=== PATIENT | female | born 1980 | race Caucasian/White ===

== ENCOUNTER 2016-03-12 18:04 | Emergency (ER) | payer OTHER ==
[2016-03-12 18:13] VITALS: BP 120/76; PULSE 74; TEMP 98; BMI 33.4
[2016-03-12] MEDS ORDERED: ONDANSETRON 4 MG/2 ML VIAL IVPB ONE (20:02)
[2016-03-12] MEDS ORDERED: HYDROmorphone HCL CARPU-JECT 1 MG/1 ML DISP.SYRIN IVPB ONE ×2 (20:02→23:04)
--- NOTE | 2016-03-12 20:30 | PDOC ---
History of Present Illness - General History Source: Patient Exam Limitations: No Limitations - History of Present Illness Initial Comments: 03/12/16 20:45 The patient is a 35 year old female with a significant past medical history of endometriosis and fibroids, who presents to the emergency department for abdominal pain. Patient reports that she typically does not get her periods. She has recently been restarted on a hormonal agent called Lupron. She started developing abdominal pain several hours ago in the right side that is consistent with all her previous endometriosis pain. Patient denies any fevers, chills, nausea, vomiting, diarrhea, dysuria. <Justin Suarez - Last Filed: 03/12/16 20:51> - General History Source: Patient Exam Limitations: No Limitations <Portillo Murray - Last Filed: 03/13/16 01:25> - General Chief Complaint: Pain, Acute Stated Complaint: ABD PAIN/VAGINAL BLEEDING Time Seen by Provider: 03/12/16 19:28 Past History <Justin Suarez - Last Filed: 03/12/16 20:51> - Past Medical History Asthma: Yes Disorders: Yes (endometriosis) Suicide Attempt (Hx): No Other medical history: ENDOMETRIOSIS, - Surgical History Abdominal Surgery: Yes (laparoscopy X5) - Reproductive History (#): 6 Para: 2 Polycystic Ovaries: Yes Therapeutic (s) & number: Yes (1) Spontaneous : 1 - Immunization History Td Vaccination: No Immunization Up to Date: Yes - Psycho/Social/Smoking Cessation Hx Anxiety: No Suicidal Ideation: No Smoking Status: No Smoking History: Never smoked Have you smoked in the past 12 months: No Number of Cigarettes Smoked Daily: 0 Information on smoking cessation initiated: No Hx Alcohol Use: No Drug/Substance Use Hx: No Substance Use Type: None <Portillo Murray - Last Filed: 03/13/16 01:25> - Past Medical History Allergies/Adverse Reactions: Allergies Allergy/AdvReac Type Severity Reaction Status Date / Time morphine AdvReac Mild Itching Verified 03/12/16 18:09 beans AdvReac Severe Uncoded 03/12/16 18:09 Home Medications: Ambulatory Orders Leuprolide Acetate [Lupron Depot] 0 mg IM MONTHLY 01/08/16 Review of Systems - Review of Systems Able to Perform ROS?: Yes Comments:: 03/12/16 20:45 GENERAL/CONSTITUTIONAL: No fever or chills. No weakness. HEAD, EYES, EARS, NOSE AND THROAT: No change in vision. No ear pain or discharge. No sore throat. CARDIOVASCULAR: No chest pain or shortness of breath. RESPIRATORY: No cough, wheezing, or hemoptysis. GASTROINTESTINAL: No nausea, vomiting, diarrhea or constipation. GENITOURINARY: No dysuria, frequency, or change in urination. ABDOMINAL: right sided abdominal pain. MUSCULOSKELETAL: No joint or muscle swelling or pain. No neck or back pain. SKIN: No rash NEUROLOGIC: No headache, vertigo, loss of consciousness, or change in strength/ sensation. ENDOCRINE: No increased thirst. No abnormal weight change. HEMATOLOGIC/LYMPHATIC: No anemia, easy bleeding, or history of blood clots. ALLERGIC/IMMUNOLOGIC: No hives or skin allergy. <Justin Suarez - Last Filed: 03/12/16 20:51> *Physical Exam - Vital Signs Last Vital Signs Temp Pulse Resp BP Pulse Ox 98.0 F 74 18 120/76 100 03/12/16 18:10 03/12/16 18:10 03/12/16 18:10 03/12/16 18:10 03/12/16 18:10 - Physical Exam Comments: 03/12/16 20:51 GENERAL: Awake, alert, and fully oriented. Uncomfortable appearing. HEAD: No signs of trauma EYES: PERRLA, EOMI, sclera anicteric, conjunctiva clear ENT: Auricles normal inspection, hearing grossly normal, nares patent, oropharynx clear without exudates. Moist mucosa NECK: Normal ROM, supple, no lymphadenopathy, JVD, or masses LUNGS: Breath sounds equal, clear to auscultation bilaterally. No wheezes, and no crackles HEART: Regular rate and rhythm, normal S1 and S2, no murmurs, rubs or gallops ABDOMEN: Right mid to lower abdominal tenderness to palpation No guarding, no rebound. No masses EXTREMITIES: Normal range of motion, no edema. No clubbing or cyanosis. No cords, erythema, or tenderness NEUROLOGICAL: Cranial nerves II through XII grossly intact. Normal speech, normal gait SKIN: Warm, Dry, normal turgor, no rashes or lesions noted. <Justin Suarez - Last Filed: 03/12/16 20:51> - Vital Signs Last Vital Signs Temp Pulse Resp BP Pulse Ox 98.0 F 74 18 120/76 100 03/12/16 18:10 03/12/16 18:10 03/12/16 18:10 03/12/16 18:10 03/12/16 18:10 <Portillo Murray - Last Filed: 03/13/16 01:25> ED Treatment Course - LABORATORY CBC & Chemistry Diagram: 03/12/16 21:12 03/12/16 21:12 <Portillo Murray - Last Filed: 03/13/16 01:25> Medical Decision Making - Medical Decision Making 03/12/16 20:33 A portion of this note was documented by scribe services under my direction. I have reviewed the details of the note, within reason, and agree with the documentation with the following case summary and management plan written by me. Patient treated in the ED. Nursing notes are reviewed and incorporated into the medical decision-making. Vital signs reviewed. Peripheral IV access obtained by the nurse, laboratory studies are drawn and sent, reviewed and interpreted by myself. Vital Signs Temp Pulse Resp BP Pulse Ox 98.0 F 74 18 120/76 100 03/12/16 18:10 03/12/16 18:10 03/12/16 18:10 03/12/16 18:10 03/12/16 18:10 35 year old female with past medical history of endometriosis and fibroids presents to the emergency department for abdominal pain. The patient has history of recurrent endometriosis pain. She reports that she typically does not get her periods. She has recently been restarted on hormonal agent called Lupron. She started developing abdominal pain in the right sided that is consistent with all her previous endometriosis pain several hours ago. When she started developing her. Now, her pain has started. Patient denies any fevers, chills, nausea, vomiting, diarrhea, dysuria. She again insists that this is exactly like her prior and which was his pain. We'll give pain medications and check labs and a urine test. At this time, we'll hold off on any imaging. However, the pain is uncontrolled, we'll need to consider either ultrasound or CAT scan. This is likely endometrosis. 03/13/16 01:22 CBC, BMP 03/12/16 21:12 03/12/16 21:12 CMP Sodium 138 mmol/L (136-145) 03/12/16 21:12 Potassium 3.9 mmol/L (3.5-5.1) 03/12/16 21:12 Chloride 103 mmol/L (98-107) 03/12/16 21:12 Carbon Dioxide 27 mmol/L (21-32) 03/12/16 21:12 Anion Gap 8 (8-16) 03/12/16 21:12 BUN 10 mg/dL (7-18) 03/12/16 21:12 Creatinine 0.9 mg/dL (0.55-1.02) D 03/12/16 21:12 Creat Clearance w eGFR > 60 (>60) 03/12/16 21:12 Random Glucose 83 mg/dL (74-106) 03/12/16 21:12 Calcium 9.1 mg/dL (8.5-10.1) 03/12/16 21:12 Total Bilirubin 0.8 mg/dL (0.2-1.0) 03/12/16 21:12 AST 20 U/L (15-37) D 03/12/16 21:12 ALT 40 U/L (12-78) D 03/12/16 21:12 Alkaline Phosphatase 108 U/L (45-117) 03/12/16 21:12 Total Protein 8.1 g/dl (6.4-8.2) 03/12/16 21:12 Albumin 4.3 g/dl (3.4-5.0) 03/12/16 21:12 Lipase 106 U/L (73-393) 03/12/16 21:12 Serum , Qual Negative 03/12/16 21:12 Urine Test Results Urine Color Yellow 03/12/16 21:12 Urine Appearance Slcloudy 03/12/16 21:12 Urine pH 6.0 (5.0-8.0) 03/12/16 21:12 Ur Specific [place] 1.025 (1.001-1.035) 03/12/16 21:12 Urine Protein Negative (NEGATIVE) 03/12/16 21:12 Urine Glucose (UA) Negative (NEGATIVE) 03/12/16 21:12 Urine Ketones Negative (NEGATIVE) 03/12/16 21:12 Urine Blood 3+ (NEGATIVE) H 03/12/16 21:12 Urine Nitrite Negative (NEGATIVE) 03/12/16 21:12 Urine Bilirubin Negative (NEGATIVE) 03/12/16 21:12 Ur Leukocyte Esterase Negative (NEGATIVE) 03/12/16 21:12 Urine RBC 812 /hpf (0-3) 03/12/16 21:12 Urine WBC 3 /hpf (3-5) 03/12/16 21:12 Ur Epithelial Cells Rare /hpf (FEW) 03/12/16 21:12 Urine Mucus Many 03/12/16 21:12 Transvaginal ultrasound reviewed. No acute findings. No torsion. The patient reports feeling significantly better and with resolution of pain. Again, this is very likely endometriosis. Supportive care and follow up with her chief unit forester UA c/w her period. I discussed the physical exam findings, ancillary test results and final diagnoses with the patient. I answered all of the patient's questions. The patient was satisfied with the care received and felt comfortable with the discharge plan and treatment plan. The patient will call their primary care physician within 24 hours to arrange follow-up and will return to the Emergency Department with any new, persistant or worsening symptoms. <Portillo Murray - Last Filed: 03/13/16 01:25> *DC/Admit/Observation/Transfer - Attestations Scribe Attestion: 03/12/16 20:45 Documentation prepared by Justin Suarez, acting as medical center director for Portillo Murray MD, MD. <Justin Suarez - Last Filed: 03/12/16 20:51> - Discharge Dispostion Admit: No <Portillo Murray - Last Filed: 03/13/16 01:25> Diagnosis at time of Disposition: Endometriosis - Discharge Dispostion Disposition: HOME Condition at time of disposition: Improved - Referrals Referrals: Meliza Morgan MD [Primary Care Provider] - - Patient Instructions Printed Discharge Instructions: DI for Endometriosis Additional Instructions: Your ultrasound is unremarkable. Please follow up with your chief unit forester doctor.
[2016-03-12] MEDS ORDERED: HYDROmorphone HCL CARPU-JECT 1 MG/1 ML DISP.SYRIN ONE ×2 (21:16→22:52)
[2016-03-12] MEDS ORDERED: ONDANSETRON 4 MG/2 ML VIAL ONE (21:17)
[2016-03-12 21:19] LABS: BASOPHIL 0.7 % (0-2.0); EOSINOPHIL 4.1 % (0-4.5); MCH 27.6 pg (25.7-33.7); MCHC 34.4 g/dl (32.0-36.0); MEAN CELL VOLUME 80.1 fl (80-96); MEAN PLT VOLUME 7.5 fl (7.5-11.1); NEUTROPHILS 34.2 % (42.8-82.8); PLATELET COUNT 350 K/MM3 (134-434); RDW 13.9 % (11.6-15.6); WHITE BLOOD COUNT 4.7 K/mm3 (4.0-10.0)
[2016-03-12 21:47] LABS: ALBUMIN 4.3 g/dl (3.4-5.0); ANION GAP 8 (8-16); BILIRUBIN,TOTAL 0.8 mg/dL (0.2-1.0); CALCIUM 9.1 mg/dL (8.5-10.1); CO2 27 mmol/L (21-32); CREATININE 0.9 mg/dL (0.55-1.02); GLUCOSE,RANDOM 83 mg/dL (74-106); SGOT/AST 20 U/L (15-37); SGPT/ALT 40 U/L (12-78); TOT PROT 8.1 g/dl (6.4-8.2)
[2016-03-12 21:48] LABS: ALK PHOS 108 U/L (45-117)
[2016-03-12 22:32] LABS: URINE APPEARANCE SLCLOUDY; URINE BILIRUBIN NEGATIVE (NEGATIVE); URINE COLOR YELLOW; URINE GLUCOSE (UA) NEGATIVE (NEGATIVE); URINE KETONE NEGATIVE (NEGATIVE); URINE LEUK ESTERASE NEGATIVE (NEGATIVE); URINE NITRITE NEGATIVE (NEGATIVE); URINE PROTEIN NEGATIVE (NEGATIVE); URINE UROBILINOGEN 2.0 E.U/dl E.U./dl (0.2-1.0)
[2016-03-12 22:55] LABS: URINE BLOOD 3+ (NEGATIVE)
[2016-03-12 22:57] LABS: URINE MUCUS MANY; URINE RBC 812 /hpf (0-3); URINE WBC 3 /hpf (3-5)
[2016-03-13] MEDS ORDERED: OXYCODONE/APAP 5/325MG COMBO TABLET PO ONE (02:21)
== END 2016-03-13 02:35 | disposition home or self-care (01) ==
LOC: JER 18:04
PROC: 3E033NZ Introduction of Analgesics, Hypnotics, Sedatives into Peripheral Vein, Percutaneous Approach (ICD-10-PCS; principal; 2016-03-12)
PROC: 3E033GC Introduction of Other Therapeutic Substance into Peripheral Vein, Percutaneous Approach (ICD-10-PCS; 2016-03-12)
DX: N80.8 Other endometriosis (principal)
CPT/HCPCS: 36415; 76830-TC; 80053; 81003; 81015; 83690; 84703; 85025; 87086; 96374; 96375; 96376; 99281-25

== ENCOUNTER 2016-03-28 13:43 | Emergency (ER) | payer OTHER ==
[2016-03-28 13:55] VITALS: BMI 32.8
--- NOTE | 2016-03-28 15:37 | PDOC ---
History of Present Illness - General History Source: Patient Exam Limitations: No Limitations - History of Present Illness Initial Comments: 03/28/16 15:43 The patient is a 35 year old female, with a significant past medical history of endometriosis and fibroids, who presents to the emergency department with abdominal pain. The patient ranks her pain a 8/10 in pain intensity. The patient reports taking Tylenol and Motrin for the past 2 days with no alleviation of her pain. She reports last taking Motrin (1000mg) last at 12: 00pm today. She denies fever, chills, headache and dizziness. Allergies: Morphine. Past surgical history: denies. Social history: Nonsmoker. Denies EtOH use and drug use. PCP: <Elliot Parekh - Last Filed: 03/28/16 15:41> <Deena Vela - Last Filed: 03/31/16 14:31> - General Chief Complaint: Pain Stated Complaint: ABDOMINAL PAIN Time Seen by Provider: 03/28/16 15:03 Past History <Elliot Parekh - Last Filed: 03/28/16 15:41> - Past Medical History Asthma: Yes Disorders: Yes (endometriosis) Suicide Attempt (Hx): No - Surgical History Abdominal Surgery: Yes (laparoscopy X5) - Reproductive History (#): 6 Para: 2 Polycystic Ovaries: Yes Therapeutic (s) & number: Yes (1) Spontaneous : 1 - Immunization History Td Vaccination: No Immunization Up to Date: Yes - Psycho/Social/Smoking Cessation Hx Anxiety: No Suicidal Ideation: No Smoking Status: No Smoking History: Never smoked Have you smoked in the past 12 months: No Number of Cigarettes Smoked Daily: 0 Hx Alcohol Use: No Drug/Substance Use Hx: No Substance Use Type: None <Deena Vela - Last Filed: 03/31/16 14:31> - Past Medical History Allergies/Adverse Reactions: Allergies Allergy/AdvReac Type Severity Reaction Status Date / Time morphine AdvReac Mild Itching Verified 03/28/16 13:55 beans AdvReac Severe Uncoded 03/28/16 13:55 Home Medications: Ambulatory Orders Leuprolide Acetate [Lupron Depot] 0 mg IM MONTHLY 01/08/16 Oxycodone HCl/Acetaminophen [Percocet 5-325 mg Tablet] 1 tab PO Q6H PRN #12 tablet MDD 4 tabs 03/28/16 Review of Systems - Review of Systems Able to Perform ROS?: Yes Comments:: 03/28/16 15:43 GENERAL/CONSTITUTIONAL: No fever or chills. No weakness. HEAD, EYES, EARS, NOSE AND THROAT: No change in vision. No ear pain or discharge. No sore throat. CARDIOVASCULAR: No chest pain or shortness of breath. RESPIRATORY: No cough, wheezing, or hemoptysis. GASTROINTESTINAL: Yes abd pain. No nausea, vomiting, diarrhea or constipation. GENITOURINARY: No dysuria, frequency, or change in urination. MUSCULOSKELETAL: No joint or muscle swelling or pain. No neck or back pain. SKIN: No rash NEUROLOGIC: No headache, vertigo, loss of consciousness, or change in strength/ sensation. ENDOCRINE: No increased thirst. No abnormal weight change. HEMATOLOGIC/LYMPHATIC: No anemia, easy bleeding, or history of blood clots. ALLERGIC/IMMUNOLOGIC: No hives or skin allergy. <Elliot Parekh - Last Filed: 03/28/16 15:41> *Physical Exam - Vital Signs Last Vital Signs Temp Pulse Resp BP Pulse Ox 98.0 F 71 20 128/80 98 03/28/16 13:53 03/28/16 13:53 03/28/16 13:53 03/28/16 13:53 03/28/16 13:53 - Physical Exam Comments: 03/28/16 15:43 GENERAL: Awake, alert, and fully oriented. tearful and appears uncomfortable. . HEAD: No signs of trauma EYES: PERRLA, EOMI, sclera anicteric, conjunctiva clear ENT: Auricles normal inspection, hearing grossly normal, nares patent, oropharynx clear without exudates. Moist mucosa NECK: Normal ROM, supple, no lymphadenopathy, JVD, or masses LUNGS: Breath sounds equal, clear to auscultation bilaterally. No wheezes, and no crackles HEART: Regular rate and rhythm, normal S1 and S2, no murmurs, rubs or gallops ABDOMEN: Lower abdominal tenderness. Soft, normoactive bowel sounds. No guarding, no rebound. No masses EXTREMITIES: Normal range of motion, no edema. No clubbing or cyanosis. No cords, erythema, or tenderness NEUROLOGICAL: Cranial nerves II through XII grossly intact. Normal speech, normal gait SKIN: Warm, Dry, normal turgor, no rashes or lesions noted. <Elliot Parekh - Last Filed: 03/28/16 15:41> - Vital Signs Last Vital Signs Temp Pulse Resp BP Pulse Ox 98.0 F 71 20 128/80 98 03/28/16 13:53 03/28/16 13:53 03/28/16 13:53 03/28/16 13:53 03/28/16 13:53 <Deena Vela - Last Filed: 03/31/16 14:31> ED Treatment Course - ADDITIONAL ORDERS Additional order review: Laboratory Results 03/28/16 15:00 Urine Color Ltyellow Urine Appearance Clear Urine pH 6.0 Ur Specific [place] 1.017 Urine Protein Negative Urine Glucose (UA) Negative Urine Ketones Negative Urine Blood Negative Urine Nitrite Negative Urine Bilirubin Negative Urine Urobilinogen Negative Ur Leukocyte Esterase Negative <Elliot Parekh - Last Filed: 03/28/16 15:41> - LABORATORY CBC & Chemistry Diagram: 03/28/16 16:00 03/28/16 16:00 <Deena Vela - Last Filed: 03/31/16 14:31> Medical Decision Making - Medical Decision Making Pt reports significant improvement with pain medication. Stable for DC with outpatient f/u. <Deena Vela - Last Filed: 03/31/16 14:31> *DC/Admit/Observation/Transfer - Attestations Scribe Attestion: 03/28/16 15:43 Documentation prepared by Elliot Parekh, acting as medical laboratory technologist for Deena Vela MD. <Elliot Parekh - Last Filed: 03/28/16 15:41> - Discharge Dispostion Admit: No <Deena Vela - Last Filed: 03/31/16 14:31> Diagnosis at time of Disposition: Endometriosis - Discharge Dispostion Disposition: HOME Condition at time of disposition: Improved - Prescriptions Prescriptions: Oxycodone HCl/Acetaminophen [Percocet 5-325 mg Tablet] 1 tab PO Q6H PRN #12 tablet MDD 4 tabs PRN Reason: Severe Pain - Referrals Referrals: Giselle Lynch [Primary Care Provider] - - Patient Instructions Printed Discharge Instructions: DI for Endometriosis
[2016-03-28] MEDS ORDERED: ONDANSETRON 4 MG/2 ML VIAL IVPUSH ONE (15:38)
[2016-03-28] MEDS ORDERED: SODIUM CHLORIDE 1,000 ML IV STA (15:38)
[2016-03-28] MEDS ORDERED: HYDROmorphone HCL CARPU-JECT 1 MG/1 ML DISP.SYRIN IVPUSH ONE ×2 (15:38→16:49)
[2016-03-28 15:39] LABS: URINE APPEARANCE CLEAR; URINE BILIRUBIN NEGATIVE (NEGATIVE); URINE BLOOD NEGATIVE (NEGATIVE); URINE COLOR LTYELLOW; URINE GLUCOSE (UA) NEGATIVE (NEGATIVE); URINE KETONE NEGATIVE (NEGATIVE); URINE LEUK ESTERASE NEGATIVE (NEGATIVE); URINE NITRITE NEGATIVE (NEGATIVE); URINE PROTEIN NEGATIVE (NEGATIVE); URINE UROBILINOGEN NEGATIVE E.U./dl (0.2-1.0)
[2016-03-28 16:10] LABS: MCH 27.6 pg (25.7-33.7); MEAN PLT VOLUME 8.5 fl (7.5-11.1); PLATELET COUNT 228 K/MM3 (134-434); RDW 13.9 % (11.6-15.6)
[2016-03-28] MEDS ORDERED: HYDROmorphone HCL CARPU-JECT 1 MG/1 ML DISP.SYRIN ONE ×2 (16:24→17:12)
[2016-03-28] MEDS ORDERED: ONDANSETRON 4 MG/2 ML VIAL ONE (16:24)
[2016-03-28 16:35] LABS: ALBUMIN 3.8 g/dl (3.4-5.0); ALK PHOS 83 U/L (45-117); ANION GAP 8 (8-16); BILIRUBIN,TOTAL 0.6 mg/dL (0.2-1.0); CALCIUM 8.8 mg/dL (8.5-10.1); CO2 27 mmol/L (21-32); CREATININE 0.9 mg/dL (0.55-1.02); GLUCOSE,RANDOM 79 mg/dL (74-106); SGOT/AST 19 U/L (15-37); SGPT/ALT 25 U/L (12-78); TOT PROT 7.2 g/dl (6.4-8.2)
[2016-03-28 16:55] LABS: PLATELET ESTIMATE ADEQUATE (NORMAL)
[2016-03-28 18:53] VITALS: BP 104/64; PULSE 60; TEMP 97.7
== END 2016-03-28 18:53 | disposition home or self-care (01) ==
LOC: JER 13:43
PROC: 3E033NZ Introduction of Analgesics, Hypnotics, Sedatives into Peripheral Vein, Percutaneous Approach (ICD-10-PCS; principal; 2016-03-28)
PROC: 3E033GC Introduction of Other Therapeutic Substance into Peripheral Vein, Percutaneous Approach (ICD-10-PCS; 2016-03-28)
DX: N80.9 Endometriosis, unspecified (principal)
CPT/HCPCS: 36415; 80053; 81003; 84703; 85025; 96374; 96375; 96376; 99282-25

== ENCOUNTER 2016-04-17 16:27 | Emergency (ER) | payer OTHER ==
[2016-04-17 16:32] VITALS: BP 116/86; PULSE 84; TEMP 97.8; BMI 32.6
--- NOTE | 2016-04-17 19:26 | PDOC ---
History of Present Illness - General History Source: Patient, Old Records Exam Limitations: No Limitations <Lydia uQick - Last Filed: 04/18/16 00:52> - General History Source: Patient, Old Records Exam Limitations: No Limitations - History of Present Illness Initial Comments: 04/17/16 20:17 The patient is a 36 year old female, with a significant past medical history of asthma, endometriosis, PCOS and fibroids, who presents to the emergency department with abdominal pain and vaginal spotting since yesterday but worsening today. The patient states that the abdominal pain is worse on the right side. She describes the pain as sharp, stabbing and burning. She reports associated nausea but denies any episodes of vomiting. The patient states that the abdominal pain she is experiencing now is consistent with her endometriosis pain. The patient reports irregular periods since the beginning of February, she states that she gets her period every two weeks and that it lasts 5 days. The patient has seen her LOW VOLTAGE TECHNICIAN who recently started her on Lupron injections. The patient states that she was supposed to get her period yesterday but instead been experiencing the abdominal pain and vaginal spotting. The patient reports taking 2 Percocet and 4 Motrin earlier today for her pain, with minimal relief of symptoms. The patient denies fever, chills, vomiting, diarrhea or any dysuria. Allergies: Morphine. Past Surgical History: Laparoscopy x 5. Social History: Non smoker. Denies alcohol or drug use. PCP: Dr. Lynch <Barbara Boewns - Last Filed: 04/18/16 01:35> - General Chief Complaint: Pain Stated Complaint: ENDOMETRIOSIS PAIN Time Seen by Provider: 04/17/16 19:26 Past History - Past Medical History Asthma: Yes Disorders: Yes (endometriosis) Suicide Attempt (Hx): No - Surgical History Abdominal Surgery: Yes (laparoscopy X5) - Reproductive History Is Patient Now?: No (#): 6 Para: 2 Polycystic Ovaries: Yes Therapeutic (s) & number: Yes (1) Spontaneous : 1 - Immunization History Td Vaccination: No Immunization Up to Date: Yes - Psycho/Social/Smoking Cessation Hx Anxiety: No Suicidal Ideation: No Smoking Status: No Smoking History: Never smoked Have you smoked in the past 12 months: No Number of Cigarettes Smoked Daily: 0 Information on smoking cessation initiated: No Hx Alcohol Use: No Drug/Substance Use Hx: No Substance Use Type: None <Lydia Quick - Last Filed: 04/18/16 00:52> <Barbara Bowens - Last Filed: 04/18/16 01:35> - Past Medical History Allergies/Adverse Reactions: Allergies Allergy/AdvReac Type Severity Reaction Status Date / Time morphine AdvReac Mild Itching Verified 04/17/16 16:28 beans AdvReac Severe Uncoded 04/17/16 16:28 Home Medications: Ambulatory Orders Leuprolide Acetate [Lupron Depot] 0 mg IM MONTHLY 01/08/16 Oxycodone HCl/Acetaminophen [Percocet 5-325 mg Tablet] 1 tab PO Q6H PRN #12 tablet MDD 4 tabs 03/28/16 Review of Systems - Review of Systems Able to Perform ROS?: Yes Comments:: 04/17/16 20:02 GENERAL/CONSTITUTIONAL: No fever or chills. No weakness. HEAD, EYES, EARS, NOSE AND THROAT: No change in vision. No ear pain or discharge. No sore throat. CARDIOVASCULAR: No chest pain or shortness of breath. RESPIRATORY: No cough, wheezing, or hemoptysis. GASTROINTESTINAL: +Nausea, abdominal pain. No vomiting, diarrhea or constipation. GENITOURINARY: +Vaginal spotting. No dysuria, frequency, or change in urination. MUSCULOSKELETAL: No joint or muscle swelling or pain. No neck or back pain. SKIN: No rash. NEUROLOGIC: No headache, vertigo, loss of consciousness, or change in strength/ sensation. ENDOCRINE: No increased thirst. No abnormal weight change. HEMATOLOGIC/LYMPHATIC: No anemia, easy bleeding, or history of blood clots. ALLERGIC/IMMUNOLOGIC: No hives or skin allergy. <Barbara Bowens - Last Filed: 04/18/16 01:35> *Physical Exam - Vital Signs Last Vital Signs Temp Pulse Resp BP Pulse Ox 97.8 F 84 18 116/86 100 04/17/16 16:29 04/17/16 16:29 04/17/16 16:29 04/17/16 16:29 04/17/16 16:29 <Lydia Quick - Last Filed: 04/18/16 00:52> - Vital Signs Last Vital Signs Temp Pulse Resp BP Pulse Ox 97.8 F 84 18 116/86 100 04/17/16 16:29 04/17/16 16:29 04/17/16 16:29 04/17/16 16:29 04/17/16 16:29 - Physical Exam Comments: 04/17/16 20:01 GENERAL: Awake, alert, and fully oriented, in no acute distress. HEAD: No signs of trauma. EYES: PERRLA, EOMI, sclera anicteric, conjunctiva clear. ENT: Auricles normal inspection, hearing grossly normal, nares patent, oropharynx clear without exudates. Moist mucosa. NECK: Normal ROM, supple, no lymphadenopathy, JVD, or masses. LUNGS: Breath sounds equal, clear to auscultation bilaterally. No wheezes, and no crackles. HEART: Regular rate and rhythm, normal S1 and S2, no murmurs, rubs or gallops. ABDOMEN: Soft, nontender, normoactive bowel sounds. No guarding, no rebound. No masses. EXTREMITIES: Normal range of motion, no edema. No clubbing or cyanosis. No cords, erythema, or tenderness. NEUROLOGICAL: Cranial nerves II through XII grossly intact. Normal speech, normal gait. SKIN: Warm, dry, normal turgor, no rashes or lesions noted. PELVIC EXAM: Thick white curd-like discharge. <Barbaar Bowens - Last Filed: 04/18/16 01:35> ED Treatment Course - LABORATORY CBC & Chemistry Diagram: 04/17/16 20:10 04/17/16 20:10 <Lydia Quick - Last Filed: 04/18/16 00:52> - LABORATORY CBC & Chemistry Diagram: 04/17/16 20:10 04/17/16 20:10 <Barbara Bowens - Last Filed: 04/18/16 01:35> Medical Decision Making - Medical Decision Making 04/17/16 19:59 36-year-old female with history of endometriosis who presents to the emergency Department with complaints of vaginal spotting and lower abdominal pain 2 days. Differential diagnosis includes but is not limited to: Endometriosis, urinary tract infection, yeast infection, ovarian pathology, cervicitis. Plan: 1. Labs 2. Urine 3. Pain management 4. IV fluids for hydration 5. Observe and reevaluate 04/18/16 00:50 Addendum: Labs were reviewed and are noted in the EMR pelvic ultrasound is negative for ovarian torsion. The patient received Dilantin 1 mg and Toradol 30 mg IV and is feeling improved. I reevaluated the patient at this time and she wants to go home. I've advised the patient to follow-up with her LOW VOLTAGE TECHNICIAN doctor within 3-5 days. Return to the emergency department if symptoms persist, worsen , or new symptoms arise. <Lydia Quick - Last Filed: 04/18/16 00:52> - Medical Decision Making 04/18/16 00:38 EXAM: Transabdominal and transvaginal pelvic US and ovarian duplex Reviewed By: Dr. Driss Shane IMPRESSION: Uterine dimensions are 9.2 x 4.7 x 6.4 cm. Endometrial stripe is normal in thickness measuring 1.0 cm. Ovary dimensions are 3.1 x 1.8 x 2.8 cm for the right ovary and 4.4 x 2.9 x 3.6 cm for the left ovary. There is intact blood flow demonstrated to the ovaries. Arterial and venous spectral waveforms demonstrated. There is no evidence of torsion. There are subcentimeter right ovarian follicles. There is a 2.7 cm left ovarian cyst. There is mild posterior cul-de-sac effusion. <Barbara Bowens - Last Filed: 04/18/16 01:35> *DC/Admit/Observation/Transfer - Discharge Dispostion Admit: No - Attestations Physician Attestion: 04/17/16 20:01 I, Dr. Lydia Quick, attest that the scribes documentation that appears above has been prepared under my direction and personally reviewed by me in its entirety. I confirmed that the note above accurately reflects all work, treatment, procedures, and medical decision-making performed by me. <Lydia Quick - Last Filed: 04/18/16 00:52> - Attestations Scribe Attestion: 04/17/16 19:40 Documentation prepared by Barbara Bowens, acting as medical insurance claims specialist for Lydia Quick MD. <Barbara Bowens - Last Filed: 04/18/16 01:35> Diagnosis at time of Disposition: Lower abdominal pain - Discharge Dispostion Disposition: HOME Condition at time of disposition: Stable - Referrals Referrals: Giselle Lynch [Primary Care Provider] - - Patient Instructions Printed Discharge Instructions: DI for Endometriosis Additional Instructions: Follow-up with your LOW VOLTAGE TECHNICIAN doctor within 3-5 days. Tylenol or Motrin for the pain. Return to the emergency department if your symptoms persist, worsen, or new symptoms arise.
[2016-04-17] MEDS ORDERED: KETOROLAC TROMETHAMINE 30 MG/1 ML VIAL IVPUSH ONE (19:58)
[2016-04-17] MEDS ORDERED: SODIUM CHLORIDE 1,000 ML IV STA (19:58)
[2016-04-17] MEDS ORDERED: KETOROLAC TROMETHAMINE 30 MG/1 ML VIAL ONE (20:15)
[2016-04-17 20:17] LABS: BASOPHIL 0.4 % (0-2.0); EOSINOPHIL 5.2 % (0-4.5); MCH 27.8 pg (25.7-33.7); MCHC 34.1 g/dl (32.0-36.0); MEAN CELL VOLUME 81.5 fl (80-96); MEAN PLT VOLUME 7.9 fl (7.5-11.1); PLATELET COUNT 229 K/MM3 (134-434); RDW 14.1 % (11.6-15.6); WHITE BLOOD COUNT 5.4 K/mm3 (4.0-10.0)
[2016-04-17 20:18] LABS: URINE APPEARANCE CLEAR; URINE BILIRUBIN NEGATIVE (NEGATIVE); URINE BLOOD NEGATIVE (NEGATIVE); URINE COLOR DKYELLOW; URINE GLUCOSE (UA) NEGATIVE (NEGATIVE); URINE KETONE NEGATIVE (NEGATIVE); URINE NITRITE NEGATIVE (NEGATIVE); URINE PROTEIN NEGATIVE (NEGATIVE); URINE UROBILINOGEN 4.0 E.U/dl E.U./dl (0.2-1.0)
[2016-04-17 20:23] LABS: URINE LEUK ESTERASE TRACE (NEGATIVE)
[2016-04-17 20:26] LABS: URINE BACTERIA RARE /hpf (NONE SEEN); URINE MUCUS MODERATE; URINE RBC 4 /hpf (0-3); URINE WBC 5 /hpf (3-5)
[2016-04-17 20:44] LABS: ALBUMIN 3.9 g/dl (3.4-5.0); ANION GAP 11 (8-16); CO2 23 mmol/L (21-32); CREATININE 0.8 mg/dL (0.55-1.02); GLUCOSE,RANDOM 80 mg/dL (74-106); MAGNESIUM 2.1 mg/dL (1.8-2.4); PHOSPHOROUS 4.2 mg/dL (2.5-4.9); SGOT/AST 20 U/L (15-37); SGPT/ALT 66 U/L (12-78)
[2016-04-17 20:45] LABS: ALK PHOS 101 U/L (45-117); TOT PROT 7.7 g/dl (6.4-8.2)
[2016-04-17] MEDS ORDERED: FLUCONAZOLE 50 MG TABLET PO ONE (21:39)
[2016-04-17] MEDS ORDERED: HYDROmorphone HCL CARPU-JECT 1 MG/1 ML DISP.SYRIN IVPUSH ONE (21:58)
[2016-04-17] MEDS ORDERED: HYDROmorphone HCL CARPU-JECT 1 MG/1 ML DISP.SYRIN ONE (22:45)
[2016-04-17] MEDS ORDERED: FLUCONAZOLE 100 MG TABLET (UD) ONE (22:45)
== END 2016-04-18 01:13 | disposition home or self-care (01) ==
LOC: JER 16:27
PROC: 3E033NZ Introduction of Analgesics, Hypnotics, Sedatives into Peripheral Vein, Percutaneous Approach (ICD-10-PCS; principal; 2016-04-17)
PROC: 3E0333Z Introduction of Anti-inflammatory into Peripheral Vein, Percutaneous Approach (ICD-10-PCS; 2016-04-17)
DX: R10.30 Lower abdominal pain, unspecified (principal); N80.9 Endometriosis, unspecified
CPT/HCPCS: 36415; 76830-TC; 80053; 81003; 81015; 83690; 83735; 84100; 84703; 85025; 87086; 96374; 96375; 99281-25

== ENCOUNTER 2016-05-18 20:19 | Emergency (ER) | payer OTHER ==
--- NOTE | 2016-05-18 20:24 | PDOC ---
Rapid Medical Evaluation Time Seen by Provider: 05/18/16 20:22 Medical Evaluation: Allergies Allergy/AdvReac Type Severity Reaction Status Date / Time morphine AdvReac Mild Itching Verified 04/17/16 16:28 beans AdvReac Severe Uncoded 04/17/16 16:28 05/18/16 20:22 36 year old female with a history of endometriosis on Lupron presenting with pelvic pain. +Vaginal spotting. V/s unremarkable. -Pgu, UA -Basic labs -To Main ED for further evaluation
[2016-05-18 20:36] VITALS: BP 139/72; PULSE 80; TEMP 98; BMI 31.4
[2016-05-18 21:03] LABS: BASOPHIL 0.5 % (0-2.0); EOSINOPHIL 5.5 % (0-4.5); MCHC 34.8 g/dl (32.0-36.0); MEAN CELL VOLUME 80.5 fl (80-96); MEAN PLT VOLUME 8.5 fl (7.5-11.1); NEUTROPHILS 38.8 % (42.8-82.8); PLATELET COUNT 237 K/MM3 (134-434); RDW 13.9 % (11.6-15.6); WHITE BLOOD COUNT 5.2 K/mm3 (4.0-10.0)
[2016-05-18 21:05] LABS: URINE APPEARANCE CLEAR; URINE BILIRUBIN NEGATIVE (NEGATIVE); URINE COLOR YELLOW; URINE GLUCOSE (UA) NEGATIVE (NEGATIVE); URINE KETONE TRACE (NEGATIVE); URINE NITRITE NEGATIVE (NEGATIVE); URINE PROTEIN NEGATIVE (NEGATIVE); URINE UROBILINOGEN 4.0 E.U/dl E.U./dl (0.2-1.0)
--- NOTE | 2016-05-18 21:16 | PDOC ---
History of Present Illness - General Chief Complaint: Pain Stated Complaint: ABD PAIN Time Seen by Provider: 05/18/16 20:22 - History of Present Illness Initial Comments: 05/18/16 21:13 CHIEF COMPLAINT: HISTORY OF PRESENT ILLNESS: 36 yo F with PM of asthma, endometriosis, PCOS and fibroids presents to the emergency department with left lower quadrant abdominal pain. Patient describes the pain as a sharb, stabbing, burning pain that she "knows is from the endometriosis." She reports associated nausea today but denies vomiting. The patient states she is on Lupron injections. She states that she has "dark blood coming out" from her vagina but it does not seem like her period. The patient reports irregular periods since the beginning of February, she states that she gets her period every two weeks and that it lasts 5 days. The patient denies fever, chills, vomiting, diarrhea or any dysuria. PAST MEDICAL HISTORY: as per HPI FAMILY HISTORY: Denies SOCIAL HISTORY: Denies tobacco, alcohol, illicit drug use. SURGICAL HISTORY: Denies ALLERGIES: beans REVIEW OF SYSTEMS General/Constitutional: Denies fever or chills. Denies weakness, weight change. HEENT: Denies change in vision. Denies ear pain or discharge. Denies sore throat. Cardiovascular: Denies chest pain or shortness of breath. Respiratory: Denies cough, wheezing, or hemoptysis. Gastrointestinal: LLQ pain. Nausea today. Denies vomiting, diarrhea or constipation. Denies rectal bleeding. Genitourinary: Denies dysuria, frequency, or change in urination. Musculoskeletal: Denies joint or muscle swelling or pain. Denies neck or back pain. Skin and breasts: Denies rash or easy bruising. Neurologic: Denies headache, vertigo, loss of consciousness, or loss of sensation. PHYSICAL EXAM General Appearance: Well-appearing, appropriately dressed. No apparent distress , no intoxication. HEENT: EOMI, PERRLA, normal voice. No conjunctival pallor. No photophobia, scleral icterus. Respiratory/Chest: Lungs CTAB. Cardiovascular: RRR. S1, S2. Gastrointestinal/Abdominal: Normal bowel sounds. Abdomen soft, non-distended. No tenderness or rebound tenderness. No organomegaly, pulsatile mass, guarding , hernia, hepatomegaly, splenomegaly. Pelvic: External genitalia normal without lesions. Vaginal vault with scant bloody discharge. Cervix is long and closed. No cervical motion tenderness. Uterus is nontender and normal in size. Adnexa are nontender and without masses. Musculoskeletal/Extremities: Normal inspection. FROM of all extremities, normal capillary refill. Pelvis Stable. No CVA tenderness. No tenderness to extremities, pedal edema, swelling, erythema or deformity. Integumentary: Appropriate color, dry, warm. 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 Fully oriented, alert. Appropriate mood/affect. Motor strength 5/5. No appreciable EOM palsy, facial droop or sensory deficit. 05/19/16 01:00 Past History - Past Medical History Allergies/Adverse Reactions: Allergies Allergy/AdvReac Type Severity Reaction Status Date / Time No Known Drug Allergies Allergy Verified 05/18/16 21:54 beans AdvReac Severe Uncoded 05/18/16 20:27 Home Medications: Ambulatory Orders Leuprolide Acetate [Lupron Depot] 0 mg IM MONTHLY 01/08/16 Oxycodone HCl/Acetaminophen [Percocet 5-325 mg Tablet] 1 tab PO Q6H PRN #12 tablet MDD 4 tabs 03/28/16 Asthma: Yes Disorders: Yes (endometriosis) Suicide Attempt (Hx): No - Surgical History Abdominal Surgery: Yes (laparoscopy X5) - Reproductive History (#): 6 Para: 2 Polycystic Ovaries: Yes Therapeutic (s) & number: Yes (1) Spontaneous : 1 - Immunization History Td Vaccination: No Immunization Up to Date: Yes - Psycho/Social/Smoking Cessation Hx Anxiety: No Suicidal Ideation: No Smoking Status: No Smoking History: Never smoked Have you smoked in the past 12 months: No Number of Cigarettes Smoked Daily: 0 Information on smoking cessation initiated: No Hx Alcohol Use: No Drug/Substance Use Hx: No Substance Use Type: None Abd/GI Specific PMHX - Complaint Specific PMHX Colitis: No Diverticulitis: No Gall Bladder Disease: No GERD: No Hepatitis: No Irritable Bowel Synd (IBS): No Pancreatitis: No GI Ulcer Disease: No *Physical Exam - Vital Signs Last Vital Signs Temp Pulse Resp BP Pulse Ox 98.0 F 80 18 139/72 100 05/18/16 20:23 05/18/16 20:23 05/18/16 20:23 05/18/16 20:23 05/18/16 20:23 ED Treatment Course - LABORATORY CBC & Chemistry Diagram: 05/18/16 20:30 05/18/16 20:30 Medical Decision Making - Medical Decision Making 05/19/16 01:00 36 yo F with PM of asthma, endometriosis, PCOS and fibroids presents to the emergency department with left lower quadrant abdominal pain. -CBC, CMP, serum -Transvaginal US -Dilaudid 1 mg -30 mg Toradol IV Patient c/o persistent pain while awaiting TV U/S. 1g Tylenol IVPB. Patient eloped while awaiting TV U/S. *DC/Admit/Observation/Transfer Diagnosis at time of Disposition: Eloped - Discharge Dispostion Disposition: ELOPED Condition at time of disposition: Unchanged/Unknown - Referrals Referrals: Giselle Lynch [Primary Care Provider] -
--- NOTE | 2016-05-18 21:29 | PDOC ---
[id number]/72 100 05/18/16 20:23 05/18/16 20:23 05/18/16 20:23 05/18/16 20:23 05/18/16 20:23 ED Treatment Course - LABORATORY CBC & Chemistry Diagram: 05/18/16 20:30 05/18/16 20:30 Medical Decision Making - Medical Decision Making 05/18/16 21:28 agree with care from [facility] *DC/Admit/Observation/Transfer Diagnosis at time of Disposition: Eloped - Discharge Dispostion Disposition: ELOPED Condition at time of disposition: Unchanged/Unknown - Referrals Referrals: Giselle Lynch [Primary Care Provider] -
[2016-05-18 21:35] LABS: URINE BLOOD 3+ (NEGATIVE); URINE LEUK ESTERASE TRACE (NEGATIVE)
[2016-05-18 21:36] LABS: ALK PHOS 93 U/L (45-117); ANION GAP 9 (8-16); BILIRUBIN,TOTAL 0.8 mg/dL (0.2-1.0); CO2 26 mmol/L (21-32); CREATININE 0.9 mg/dL (0.55-1.02); GLUCOSE,RANDOM 95 mg/dL (74-106); SGOT/AST 18 U/L (15-37); SGPT/ALT 33 U/L (12-78); TOT PROT 7.8 g/dl (6.4-8.2)
[2016-05-18] MEDS ORDERED: HYDROmorphone HCL CARPU-JECT 1 MG/1 ML DISP.SYRIN IVPUSH ONE (21:37)
[2016-05-18] MEDS ORDERED: KETOROLAC TROMETHAMINE 30 MG/1 ML VIAL IVPUSH ONE (21:37)
[2016-05-18 21:38] LABS: CALCIUM OXALATE CRYSTALS RARE /hpf (NONE SEEN); URINE BACTERIA RARE /hpf (NONE SEEN); URINE MUCUS RARE; URINE RBC 4 /hpf (0-3); URINE WBC 9 /hpf (3-5)
[2016-05-18] MEDS ORDERED: HYDROmorphone HCL CARPU-JECT 1 MG/1 ML DISP.SYRIN ONE (22:16)
[2016-05-18] MEDS ORDERED: KETOROLAC TROMETHAMINE 30 MG/1 ML VIAL ONE (22:16)
[2016-05-18] MEDS ORDERED: ACETAMINOPHEN 1000 MG/100 ML VIAL (NON FORMULARY) IVPB ONE (23:11)
[2016-05-18] MEDS ORDERED: ACETAMINOPHEN INJECTION 100 ML IVPB ONE (23:19)
== END 2016-05-18 23:57 | disposition left against medical advice (07) ==
LOC: JER 20:19
PROC: 3E033NZ Introduction of Analgesics, Hypnotics, Sedatives into Peripheral Vein, Percutaneous Approach (ICD-10-PCS; principal; 2016-05-18)
PROC: 3E0333Z Introduction of Anti-inflammatory into Peripheral Vein, Percutaneous Approach (ICD-10-PCS; 2016-05-18)
DX: R10.32 Left lower quadrant pain (principal)
CPT/HCPCS: 36415; 80053; 81003; 81015; 84703; 85025; 86850; 86900; 86901; 87086; 96374; 96375; 99281-25

== ENCOUNTER 2016-09-29 19:28 | Emergency (ER) | payer OTHER ==
[2016-09-29 19:43] VITALS: BP 141/73; PULSE 73; TEMP 97.9; BMI 31.0
--- NOTE | 2016-09-29 20:49 | PDOC ---
History of Present Illness - General History Source: Patient Exam Limitations: No Limitations - History of Present Illness Initial Comments: 09/29/16 20:57 Patient is a 36 year old female with a significant past medical history of asthma, PCOS and endometriosis who presents to the ED with lower abdominal pain. Patient was evaluated by her director cpg on Tuesday for her endometriosis and was restarted on hormones with no relief. Patient states that she has been taking tylenol and motrin with minimal relief. She reports nausea no vomiting. She also reports some dark blood discharge. Patient has not changed her pad for over a day. [facility] <Priscilla Akers - Last Filed: 09/29/16 20:56> - General History Source: Patient <Jones Amaya - Last Filed: 09/29/16 23:56> - General Chief Complaint: Pain Stated Complaint: ABDOMINAL PAIN Time Seen by Provider: 09/29/16 20:31 Past History <Priscilla Akers - Last Filed: 09/29/16 20:56> - Past Medical History Asthma: Yes Disorders: Yes (endometriosis) Suicide Attempt (Hx): No - Surgical History Abdominal Surgery: Yes (laparoscopy X5) - Reproductive History (#): 6 Para: 2 Polycystic Ovaries: Yes Therapeutic (s) & number: Yes (1) Spontaneous : 1 - Immunization History Td Vaccination: No Immunization Up to Date: Yes - Psycho/Social/Smoking Cessation Hx Anxiety: No Suicidal Ideation: No Smoking Status: No Smoking History: Never smoked Have you smoked in the past 12 months: No Number of Cigarettes Smoked Daily: 0 Hx Alcohol Use: No Drug/Substance Use Hx: No Substance Use Type: None <Jones Amaya - Last Filed: 09/29/16 23:56> - Past Medical History Allergies/Adverse Reactions: Allergies Allergy/AdvReac Type Severity Reaction Status Date / Time No Known Drug Allergies Allergy Verified 09/29/16 19:41 beans AdvReac Severe Uncoded 09/29/16 19:41 Home Medications: Ambulatory Orders Acetaminophen [Tylenol] 650 mg PO QID PRN 09/29/16 Ibuprofen 800 mg PO TID #30 tablet 09/29/16 Ibuprofen [Motrin -] 600 mg PO QID PRN 09/29/16 Norethindrone Acetate [Norethindrone AC (Lupaneta)] 5 mg PO ASDIR 09/29/16 Omeprazole 20 mg PO DAILY 09/29/16 Oxycodone HCl/Acetaminophen [Percocet 5-325 mg Tablet] 1 - 2 tab PO Q6H #20 tablet MDD 4 09/29/16 Phentermine HCl [Adipex-P] 37.5 mg PO ASDIR 09/29/16 Review of Systems - Review of Systems Able to Perform ROS?: Yes Comments:: 09/29/16 20:57 CONSTITUTIONAL: Absent: fever, chills, diaphoresis, generalized weakness, malaise, loss of appetite HEENT: Absent: rhinorrhea, nasal congestion, throat pain, throat swelling, difficulty swallowing, mouth swelling, ear pain, eye pain, visual Changes CARDIOVASCULAR: Absent: chest pain, syncope, palpitations, irregular heart rate, lightheadedness , peripheral edema RESPIRATORY: Absent: cough, shortness of breath, dyspnea with exertion, orthopnea, wheezing, stridor, hemoptysis GASTROINTESTINAL: Present: abdominal pain, nausea Absent: abdominal distension, vomiting, diarrhea, constipation, melena, hematochezia GENITOURINARY: Absent: dysuria, frequency, urgency, hesitancy, hematuria, flank pain, genital pain MUSCULOSKELETAL: Absent: myalgia, arthralgia, joint swelling SKIN: Absent: rash, itching, pallor HEMATOLOGIC/IMMUNOLOGIC: Absent: easy bleeding, easy bruising, lymphadenopathy, frequent infections ENDOCRINE: Absent: unexplained weight gain, unexplained weight loss, heat intolerance, cold intolerance NEUROLOGIC: Absent: headache, focal weakness or paresthesias, dizziness, unsteady gait, seizure, mental status changes, bladder or bowel incontinence PSYCHIATRIC: Absent: anxiety, depression, suicidal or homicidal ideation, hallucinations. <Priscilla Akers - Last Filed: 09/29/16 20:56> *Physical Exam - Vital Signs Last Vital Signs Temp Pulse Resp BP Pulse Ox 97.9 F 73 17 141/73 99 09/29/16 19:37 09/29/16 19:37 09/29/16 19:37 09/29/16 19:37 09/29/16 19:37 - Physical Exam Comments: 09/29/16 20:59 GENERAL: (+)Mild distress. Well developed, well nourished. Awake and alert. HEENT: Normocephalic, atraumatic. PERRLA, EOMI. No conjunctival pallor. Sclerae are non -icteric. Moist mucous membranes. Oropharynx is clear. NECK: Supple. Full ROM. No JVD. Carotid pulses 2+ and symmetric, without bruits. No thyromegaly. No lymphadenopathy. CARDIOVASCULAR: Regular rate and rhythm. No murmurs, rubs, or gallops. Distal pulses are 2+ and symmetric. PULMONARY: No evidence of respiratory distress. Lungs clear to auscultation bilaterally. No wheezing, rales or rhonchi. ABDOMINAL: (+)tender in lower pelvis. Soft. Non-tender abdomen. Non-distended. No rebound or guarding. No organomegaly. Normoactive bowel sounds. MUSCULOSKELETAL Normal range of motion at all joints. No bony deformities or tenderness. No CVA tenderness. EXTREMITIES: No cyanosis. No clubbing. No edema. No calf tenderness. SKIN: Warm and dry. Normal capillary refill. No rashes. No jaundice. NEUROLOGICAL: Alert, awake, appropriate. Cranial nerves 2-12 intact. No deficits to light touch and temperature in face, upper extremities and lower extremities. No motor deficits in the in face, upper extremities and lower extremities. Normoreflexic in the upper and lower extremities. Normal speech. Toes are downgoing bilaterally. PSYCHIATRIC: Cooperative. Good eye contact. Appropriate mood and affect. <Priscilla Akers - Last Filed: 09/29/16 20:56> - Vital Signs Last Vital Signs Temp Pulse Resp BP Pulse Ox 97.9 F 73 17 141/73 99 09/29/16 19:37 09/29/16 19:37 09/29/16 19:37 09/29/16 19:37 09/29/16 19:37 <Jones Amaya - Last Filed: 09/29/16 23:56> ED Treatment Course - LABORATORY CBC & Chemistry Diagram: 09/29/16 21:10 09/29/16 22:29 <Jones Amaya - Last Filed: 09/29/16 23:56> Medical Decision Making - Medical Decision Making 09/29/16 23:55 Dr. Amaya: The scribe's documentation has been prepared under my direction and personally reviewed by me in its entirery. I confirm that the note above accurately reflects all work, treatment, procedures, and medical decision making performed by me. Patient now feeling better. States is able to get herself home to follow-up with her COLLEGE COACH doctor. <Jones Amaya - Last Filed: 09/29/16 23:56> *DC/Admit/Observation/Transfer - Attestations Scribe Attestion: 09/29/16 21:01 Documentation prepared by DEIDRA Benoit, acting as medical billing representative for Jones Amaya DO. <Priscilla Akers - Last Filed: 09/29/16 20:56> - Discharge Dispostion Admit: No <Jones Amaya - Last Filed: 09/29/16 23:56> Diagnosis at time of Disposition: Pelvic pain, Chronic pain, Lower abdominal pain - Discharge Dispostion Disposition: HOME Condition at time of disposition: Stable - Prescriptions Prescriptions: Ibuprofen 800 mg PO TID #30 tablet Oxycodone HCl/Acetaminophen [Percocet 5-325 mg Tablet] 1 - 2 tab PO Q6H #20 tablet MDD 4 - Referrals Referrals: Giselle Lynch [Primary Care Provider] - - Patient Instructions Printed Discharge Instructions: Chronic Pelvic Pain, DI for Pelvic Pain
[2016-09-29] MEDS ORDERED: traMADol HCL 50 MG TABLET PO ONE (20:50)
[2016-09-29] MEDS ORDERED: ONDANSETRON *ODT* 4 MG TABLET SL ONE (20:50)
[2016-09-29] MEDS ORDERED: traMADol HCL 50 MG TABLET ONE (20:56)
[2016-09-29] MEDS ORDERED: HYDROmorphone HCL CARPU-JECT 1 MG/1 ML DISP.SYRIN IM STA (21:16)
[2016-09-29 21:20] LABS: BASOPHIL 0.3 % (0-2.0); EOSINOPHIL 2.1 % (0-4.5); MCH 28.4 pg (25.7-33.7); MEAN CELL VOLUME 81.2 fl (80-96); MEAN PLT VOLUME 8.1 fl (7.5-11.1); NEUTROPHILS 53.2 % (42.8-82.8); PLATELET COUNT 242 K/MM3 (134-434); RDW 13.9 % (11.6-15.6); WHITE BLOOD COUNT 5.3 K/mm3 (4.0-10.0)
[2016-09-29] MEDS ORDERED: HYDROmorphone HCL CARPU-JECT 1 MG/1 ML DISP.SYRIN ONE (21:21)
[2016-09-29] MEDS ORDERED: HYDROmorphone HCL CARPU-JECT 1 MG/1 ML DISP.SYRIN IVPUSH ONE ×2 (21:21→22:01)
[2016-09-29] MEDS ORDERED: ONDANSETRON 4 MG/2 ML VIAL IVPUSH STA (22:01)
[2016-09-29] MEDS ORDERED: SODIUM CHLORIDE 1,000 ML IV STA (22:02)
[2016-09-29] MEDS ORDERED: ONDANSETRON *ODT* 4 MG TABLET ONE (22:19)
[2016-09-29] MEDS ORDERED: HYDROmorphone HCL CARPU-JECT 2 MG/1 ML DISP.SYRIN ONE (22:19)
[2016-09-29] MEDS ORDERED: ONDANSETRON 4 MG/2 ML VIAL ONE ×2 (22:37→22:38)
[2016-09-29 23:06] LABS: ANION GAP 10 (8-16); CALCIUM 9.2 mg/dL (8.5-10.1); CO2 26 mmol/L (21-32); CREATININE 0.7 mg/dL (0.55-1.02); GLUCOSE,RANDOM 112 mg/dL (74-106)
== END 2016-09-30 00:01 | disposition home or self-care (01) ==
LOC: JER 19:28
PROC: 3E033GC Introduction of Other Therapeutic Substance into Peripheral Vein, Percutaneous Approach (ICD-10-PCS; principal; 2016-09-29)
PROC: 3E033NZ Introduction of Analgesics, Hypnotics, Sedatives into Peripheral Vein, Percutaneous Approach (ICD-10-PCS; 2016-09-29)
PROC: 3E0337Z Introduction of Electrolytic and Water Balance Substance into Peripheral Vein, Percutaneous Approach (ICD-10-PCS; 2016-09-29)
DX: R10.30 Lower abdominal pain, unspecified (principal); R10.2 Pelvic and perineal pain; G89.29 Other chronic pain; E28.2 Polycystic ovarian syndrome; N80.9 Endometriosis, unspecified
CPT/HCPCS: 36415; 80048; 84703; 85025; 99283-25

== ENCOUNTER 2016-10-30 14:38 | Emergency (ER) | payer OTHER ==
[2016-10-30 14:43] VITALS: BMI 33.4
--- NOTE | 2016-10-30 15:28 | PDOC ---
History of Present Illness - General Chief Complaint: Pain Stated Complaint: ABD PAIN Time Seen by Provider: 10/30/16 15:00 History Source: Patient Exam Limitations: No Limitations - History of Present Illness Travel History: No Initial Comments: 10/30/16 15:31 36y F hx of asthma, endometriosis (dx via laparoscopy), pcos, fibroids presents with lower abodimnal pain that has been worsening the past few days. The pain is a sharp burning/aching pain. +nausea. Pt deneis any vaginal bleeding, diarrhea, fever/chills, vomiting. 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 pt notes pain is consistent with her endometriosis pain. Past History - Past Medical History Allergies/Adverse Reactions: Allergies Allergy/AdvReac Type Severity Reaction Status Date / Time No Known Drug Allergies Allergy Verified 10/30/16 14:40 beans AdvReac Severe Uncoded 10/30/16 14:40 Home Medications: Ambulatory Orders Acetaminophen [Tylenol] 650 mg PO QID PRN 09/29/16 Ibuprofen 800 mg PO TID #30 tablet 09/29/16 Norethindrone Acetate [Norethindrone AC (Lupaneta)] 5 mg PO DAILY 09/29/16 Omeprazole 20 mg PO DAILY 09/29/16 Oxycodone HCl/Acetaminophen [Percocet 5-325 mg Tablet] 1 - 2 tab PO Q6H #20 tablet MDD 4 09/29/16 Phentermine HCl [Adipex-P] 30 mg PO DAILY 09/29/16 Cyanocobalamin (Vitamin B-12) [Vitamin B12] 5,000 mcg PO DAILY 10/30/16 Asthma: Yes Disorders: Yes (endometriosis) Suicide Attempt (Hx): No - Surgical History Abdominal Surgery: Yes (laparoscopy X5) - Reproductive History (#): 6 Para: 2 Polycystic Ovaries: Yes Therapeutic (s) & number: Yes (1) Spontaneous : 1 - Immunization History Td Vaccination: No Immunization Up to Date: Yes - Psycho/Social/Smoking Cessation Hx Anxiety: No Suicidal Ideation: No Smoking Status: No Smoking History: Never smoked Have you smoked in the past 12 months: No Number of Cigarettes Smoked Daily: 0 Information on smoking cessation initiated: No Hx Alcohol Use: No Drug/Substance Use Hx: No Substance Use Type: None Abd/GI Specific PMHX - Complaint Specific PMHX Colitis: No Diverticulitis: No Gall Bladder Disease: No GERD: No Hepatitis: No Irritable Bowel Synd (IBS): No Pancreatitis: No GI Ulcer Disease: No Review of Systems - Review of Systems Able to Perform ROS?: Yes Comments:: 10/30/16 15:47 Constitutional - no reported Fever, Chills, HEENT: no reported vision changes, sore throat Respiratory: no reported cough, sob, hemoptysis Cardiac: no reported chest pain, palpitations, light headedness, leg swelling Abd/GI: +abd pain, nausea, no reported vomiting, blood per rectum, melena, diarrhea : no reported dysuria, frequency, discharge Musculskelatal - no reported back pain, joint swelling skin - no reported bruising, erythema, rash neurological: no reported headache, numbness, focal weakness, tingling, ataxia, hematologic: no reported anemia, easy bruising, easy bleeding *Physical Exam - Vital Signs Last Vital Signs Temp Pulse Resp BP Pulse Ox 98 F 101 H 18 122/73 100 10/30/16 14:40 10/30/16 14:40 10/30/16 14:40 10/30/16 14:40 10/30/16 14:40 - Physical Exam Comments: 10/30/16 15:48 GENERAL: The patient is awake, alert, and fully oriented, Nontoxic - in no acute distress. HEAD: Normocephalic, atraumatic. EYES: extraocular movements intact, sclera anicteric, conjunctiva clear. ENT: Normal voice, Moist mucous membranes. NECK: Normal range of motion, supple LUNGS: Breath sounds equal, clear to auscultation bilaterally. No wheezes, no rhonchi, no rales. HEART: Regular rate and rhythm, normal S1 and S2 without murmur, rub or gallop. ABDOMEN: Soft, mild lower abdominal tenderness, normoactive bowel sounds. No guarding, no rebound. . No CVA tenderness EXTREMITIES: Normal range of motion, no edema. No clubbing or cyanosis. No cords, erythema, or tenderness. NEUROLOGICAL: No facial assymetry, Normal speech, PSYCH: Normal mood, normal affect. SKIN: Warm, Dry, normal turgor, ED Treatment Course - LABORATORY CBC & Chemistry Diagram: 10/30/16 15:49 10/30/16 15:49 Medical Decision Making - Medical Decision Making 10/30/16 15:31 suspect her endometriosis pain will r/o , uti will reassess s/p toradol 10/30/16 17:35 labs reviewed not preganant pt still has some hugh pt given 1mg of dilaudid 10/30/16 18:53 pt feeling significantlly improved US negative no free fluid no torsion will dc with obgyn fu return precautions were discussed I discussed the physical exam findings, ancillary test results and final diagnoses with the patient. I answered all of the patient's questions. The patient was satisfied with the care received and felt comfortable with the discharge plan and treatment plan. The patient will call their primary care physician within 24 hours to arrange follow-up and will return to the Emergency Department with any new, persistent or worsening symptoms. *DC/Admit/Observation/Transfer Diagnosis at time of Disposition: Endometriosis - Discharge Dispostion Disposition: HOME Condition at time of disposition: Improved Admit: No - Referrals Referrals: Giselle Lynch [Primary Care Provider] - - Patient Instructions Printed Discharge Instructions: DI for Endometriosis Additional Instructions: Return to the emergency department immediately with ANY new, persistent or worsening symptoms including worsening abdominal pain, fevers, inability to tolerate oral intake, chest pain, shortness of breath or any other concerns. Stay well hydrated. You MUST call and follow up with your automobile wrecker and pain managment doctor on tuesday. Your emergency department visit is not complete without a followup with your doctor for reevaluation. Please make sure your doctor reviews the results of your emergency evaluation.
[2016-10-30] MEDS ORDERED: KETOROLAC TROMETHAMINE 30 MG/1 ML VIAL IVPUSH ONE (15:30)
[2016-10-30 15:53] LABS: BASOPHIL 0.5 % (0-2.0); EOSINOPHIL 3.1 % (0-4.5); MCH 28.3 pg (25.7-33.7); MCHC 34.7 g/dl (32.0-36.0); MEAN CELL VOLUME 81.7 fl (80-96); MEAN PLT VOLUME 8.3 fl (7.5-11.1); NEUTROPHILS 50.9 % (42.8-82.8); PLATELET COUNT 250 K/MM3 (134-434); RDW 14.2 % (11.6-15.6); WHITE BLOOD COUNT 4.3 K/mm3 (4.0-10.0)
[2016-10-30 16:04] LABS: URINE COLOR YELLOW
[2016-10-30 16:05] LABS: URINE APPEARANCE CLEAR; URINE BILIRUBIN NEGATIVE (NEGATIVE); URINE BLOOD NEGATIVE (NEGATIVE); URINE GLUCOSE (UA) NEGATIVE (NEGATIVE); URINE KETONE NEGATIVE (NEGATIVE)
[2016-10-30 16:06] LABS: URINE LEUK ESTERASE NEGATIVE (NEGATIVE); URINE NITRITE NEGATIVE (NEGATIVE); URINE PROTEIN NEGATIVE (NEGATIVE); URINE UROBILINOGEN 4.0 E.U/dl mg/dL (0.2-1.0)
[2016-10-30] MEDS ORDERED: KETOROLAC TROMETHAMINE 30 MG/1 ML VIAL ONE (16:09)
[2016-10-30 16:26] LABS: ALBUMIN 4.1 g/dl (3.4-5.0); ANION GAP 8 (8-16); BILIRUBIN,TOTAL 1.2 mg/dL (0.2-1.0); CO2 26 mmol/L (21-32); CREATININE 0.8 mg/dL (0.55-1.02); GLUCOSE,RANDOM 81 mg/dL (74-106); SGPT/ALT 182 U/L (12-78); TOT PROT 7.7 g/dl (6.4-8.2)
[2016-10-30 16:27] LABS: ALK PHOS 89 U/L (45-117)
[2016-10-30 16:30] LABS: SGOT/AST 52 U/L (15-37)
[2016-10-30] MEDS ORDERED: HYDROmorphone HCL CARPU-JECT 2 MG/1 ML DISP.SYRIN IVPUSH ONE (16:46)
[2016-10-30] MEDS ORDERED: HYDROmorphone HCL CARPU-JECT 1 MG/1 ML DISP.SYRIN ONE ×2 (16:48→18:23)
[2016-10-30] MEDS ORDERED: HYDROmorphone HCL CARPU-JECT 1 MG/1 ML DISP.SYRIN IVPUSH ONE (18:20)
[2016-10-30 18:40] VITALS: BP 108/69; PULSE 80; TEMP 97.8
== END 2016-10-30 18:57 | disposition home or self-care (01) ==
LOC: JER 14:38
PROC: 3E033NZ Introduction of Analgesics, Hypnotics, Sedatives into Peripheral Vein, Percutaneous Approach (ICD-10-PCS; principal; 2016-10-30)
PROC: 3E033GC Introduction of Other Therapeutic Substance into Peripheral Vein, Percutaneous Approach (ICD-10-PCS; 2016-10-30)
DX: N80.9 Endometriosis, unspecified (principal); E28.2 Polycystic ovarian syndrome; D25.9 Leiomyoma of uterus, unspecified
CPT/HCPCS: 36415; 76830-TC; 80053; 81003; 84703; 85025; 99283-25

== ENCOUNTER → 2017-03-02 | Emergency (ER) | payer OTHER ==
[~2017-03-02] MED LIST: HYDROmorphone HCL CARPU-JECT 1 MG/1 ML DISP.SYRIN IVPUSH ONE; HYDROmorphone HCL CARPU-JECT 1 MG/1 ML DISP.SYRIN ONE; HYDROmorphone HCL CARPU-JECT 2 MG/1 ML DISP.SYRIN IM ONE; HYDROmorphone HCL CARPU-JECT 2 MG/1 ML DISP.SYRIN ONE; KETOROLAC TROMETHAMINE 30 MG/1 ML VIAL IM ONE; KETOROLAC TROMETHAMINE 30 MG/1 ML VIAL ONE
[2017-03-02 21:43] VITALS: BP 111/76; PULSE 77; TEMP 98.4; BMI 30.5
--- NOTE | 2017-03-02 21:45 | PDOC ---
Rapid Medical Evaluation Time Seen by Provider: 03/02/17 21:39 Medical Evaluation: Allergies Allergy/AdvReac Type Severity Reaction Status Date / Time No Known Drug Allergies Allergy Verified 01/04/17 12:36 beans AdvReac Severe Uncoded 01/04/17 12:36 I have performed a brief in-person evaluation of this patient. The patient presents with a chief complaint of: lower abdominal pain in b/l pelvic region starting today along with nausea. The patient has not had a menstrual cycle for almost 1 year. She got her period today and is in severe pain. Pertinent physical exam findings: TTP of b/l lower pelvic region. I have ordered the following: hcg/UA/culture The patient will proceed to the ED for further evaluation.
[2017-03-02 22:09] LABS: HCG,QUALITATIVE URINE NEGATIVE
[2017-03-02 22:10] LABS: URINE APPEARANCE SLCLOUDY; URINE BILIRUBIN NEGATIVE (NEGATIVE); URINE BLOOD 2+ (NEGATIVE); URINE COLOR YELLOW; URINE GLUCOSE (UA) NEGATIVE (NEGATIVE); URINE KETONE TRACE (NEGATIVE); URINE LEUK ESTERASE NEGATIVE (NEGATIVE); URINE NITRITE NEGATIVE (NEGATIVE); URINE PROTEIN NEGATIVE (NEGATIVE)
[2017-03-02 22:16] LABS: EPI CELLS RARE /HPF (FEW); URINE MUCUS FEW
--- NOTE | 2017-03-03 00:06 | PDOC ---
History of Present Illness - General Chief Complaint: Pain, Acute Stated Complaint: ABD PAIN Time Seen by Provider: 03/02/17 21:39 History Source: Patient - History of Present Illness Initial Comments: 03/03/17 00:01 36-year-old female complaining of bilateral pelvic pain and vaginal bleeding since 3 PM. Patient reports that she hasn't had her period for 2 years and is currently on control. patient reports that her usual period pain is similar to this episode. Patient reports large bleeding with clots earlier currently has subsided. Patient has a history of endometriosis, adenomyosis, asthma. Patient has had several surgeries for the endometriosis. patient reports that she stopped taking hormones for 5 days and then restarted for the last two weeks. 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: [facility] 03/03/17 02:22 Past History - Past Medical History Allergies/Adverse Reactions: Allergies Allergy/AdvReac Type Severity Reaction Status Date / Time No Known Drug Allergies Allergy Verified 01/04/17 12:36 beans AdvReac Severe Uncoded 01/04/17 12:36 Home Medications: Ambulatory Orders Acetaminophen [Tylenol] 650 mg PO QID PRN 09/29/16 Ibuprofen 800 mg PO TID #30 tablet 09/29/16 Norethindrone Acetate [Norethindrone AC (Lupaneta)] 5 mg PO DAILY 09/29/16 Omeprazole 20 mg PO DAILY 09/29/16 Oxycodone HCl/Acetaminophen [Percocet 5-325 mg Tablet] 1 - 2 tab PO Q6H #20 tablet MDD 4 09/29/16 Cyanocobalamin (Vitamin B-12) [Vitamin B12] 5,000 mcg PO DAILY 10/30/16 Asthma: Yes COPD: No Disorders: Yes (endometriosis) - Surgical History Abdominal Surgery: Yes (laparoscopy X5) - Reproductive History (#): 6 Para: 2 Polycystic Ovaries: Yes Therapeutic (s) & number: Yes (1) Spontaneous : 1 - Immunization History Td Vaccination: No Immunization Up to Date: Yes - Suicide/Smoking/Psychosocial Hx Smoking Status: No Smoking History: Unknown if ever smoked Have you smoked in the past 12 months: No Number of Cigarettes Smoked Daily: 0 Information on smoking cessation initiated: No Hx Alcohol Use: No Drug/Substance Use Hx: No Substance Use Type: None Abd/GI Specific PMHX - Complaint Specific PMHX Colitis: No Diverticulitis: No Gall Bladder Disease: No GERD: No Hepatitis: No Irritable Bowel Synd (IBS): No Pancreatitis: No GI Ulcer Disease: No Review of Systems - Review of Systems Able to Perform ROS?: Yes Is the patient limited [place]anian proficient: No : Yes: Other (VAGinal bleeding and pelvic pain) *Physical Exam - Vital Signs Last Vital Signs Temp Pulse Resp BP Pulse Ox 98.4 F 77 20 111/76 100 03/02/17 21:40 03/02/17 21:40 03/02/17 21:40 03/02/17 21:40 03/02/17 21:40 - Physical Exam General Appearance: Yes: Appropriately Dressed Female Pelvic Exam: positive: normal external exam, cervical os closed, CMT, other (right pelvic tenderness > left. no abdominal tenderness. blood in vaginal vault) Musculoskeletal: positive: Normal Inspection Extremity: positive: Normal Capillary Refill Integumentary: positive: Normal Color, Dry, Warm Neurologic: positive: Fully Oriented, Alert, Normal Mood/Affect ED Treatment Course - ADDITIONAL ORDERS Additional order review: Laboratory Results 03/02/17 21:55 Urine Color Yellow Urine Appearance Slcloudy Urine pH 5.0 Ur Specific [place] 1.026 Urine Protein Negative Urine Glucose (UA) Negative Urine Ketones Trace H Urine Blood 2+ H Urine Nitrite Negative Urine Bilirubin Negative Urine Urobilinogen 2.0 H Urine WBC (Auto) 2 Urine RBC (Auto) 1 Ur Epithelial Cells Rare Urine Mucus Few Urine HCG, Qual Negative - RADIOLOGY Radiograph Interpretation: 03/03/17 02:20 TVUS: normal uterus, normal endometrial complex at 1.9 mm thickness. right ovary with positive doppler blood flow. the left ovary could not be visualized due to bowel gas. there is some free fluid in the pelvic culdesac Progress Note - Progress Note Progress Note: A: endometriosis , pelvic pain P: pain control TVUS d/c home Medical Decision Making - Medical Decision Making 03/03/17 04:13 patient reports pain relief. will d/c home to follow up with pmd/ *DC/Admit/Observation/Transfer Diagnosis at time of Disposition: Pelvic pain - Discharge Dispostion Disposition: HOME - Referrals Referrals: Giselle Lynch [Primary Care Provider] - - Patient Instructions Printed Discharge Instructions: Endometriosis Additional Instructions: follow up with your doctor as soon as possible. return to the ED if symptoms worsen. - Post Discharge Activity
--- NOTE | 2017-03-03 02:15 | PDOC ---
*Physical Exam - Vital Signs Last Vital Signs Temp Pulse Resp BP Pulse Ox 98.4 F 77 20 111/76 100 03/02/17 21:40 03/02/17 21:40 03/02/17 21:40 03/02/17 21:40 03/02/17 21:40 ED Treatment Course - ADDITIONAL ORDERS Additional order review: Laboratory Results 03/02/17 21:55 Urine Color Yellow Urine Appearance Slcloudy Urine pH 5.0 Ur Specific [place] 1.026 Urine Protein Negative Urine Glucose (UA) Negative Urine Ketones Trace H Urine Blood 2+ H Urine Nitrite Negative Urine Bilirubin Negative Urine Urobilinogen 2.0 H Urine WBC (Auto) 2 Urine RBC (Auto) 1 Ur Epithelial Cells Rare Urine Mucus Few Urine HCG, Qual Negative - Medications Given in the ED: ED Medications Discontinued Medications Generic Name Dose Route Start Last Admin Trade Name Freq PRN Reason Stop Dose Admin Ketorolac Tromethamine 30 mg 03/03/17 01:39 03/03/17 01:54 Toradol Injection - IM 03/03/17 01:40 30 mg ONCE ONE Administration Medical Decision Making - Medical Decision Making 03/03/17 02:14 agree with care from CARLA Alva *DC/Admit/Observation/Transfer Diagnosis at time of Disposition: Pelvic pain - Referrals Referrals: Giselle Lynch [Primary Care Provider] - - Patient Instructions - Post Discharge Activity
== END | disposition home or self-care (01) ==
LOC: JER 21:06
PROC: 3E033NZ Introduction of Analgesics, Hypnotics, Sedatives into Peripheral Vein, Percutaneous Approach (ICD-10-PCS; principal; 2017-03-02)
PROC: 3E023NZ Introduction of Analgesics, Hypnotics, Sedatives into Muscle, Percutaneous Approach (ICD-10-PCS; 2017-03-02)
PROC: 3E0233Z Introduction of Anti-inflammatory into Muscle, Percutaneous Approach (ICD-10-PCS; 2017-03-02)
DX: R10.2 Pelvic and perineal pain (principal); N93.8 Other specified abnormal uterine and vaginal bleeding
CPT/HCPCS: 76830-TC; 81003; 81015; 84703; 87086; 99282-25

== ENCOUNTER 2017-05-05 21:36 | Emergency (ER) | payer OTHER ==
[2017-05-05 21:50] VITALS: BP 118/70; PULSE 112; TEMP 99.2; BMI 32.3
--- NOTE | 2017-05-05 22:46 | PDOC ---
History of Present Illness <Nissa Calloway - Last Filed: 05/06/17 02:37> - General History Source: Patient, Old Records Exam Limitations: No Limitations - History of Present Illness Initial Comments: 05/06/17 02:41 Patient is a 37 year old female, who is 9 weeks , A2, with a significant past medical history of endometriosis (confirmed via scope), ovarian cysts, adenomyosis, asthma, and PCOS who presents to the ED with amplitudes of abdominal pain that began earlier this week. Patient reports experiencing abdominal pain that began earlier this week prompting her to see her CONCESSION C[facility]IER this morning who stated to come into the ED for further evaluation if the pain continued. Patient reports experiencing left lower quadrant as well as superpubic pain. She reports experiencing intermittent chills as well as nausea, and headache. Patient states she has been experiencing back pain but states that it is her baseline while . Denies chest pain, Sob. Denies vomiting. Denies fevers. Denies contact with sick individuals, out of state travelling. Denies trauma to affected area. Denies any other symptoms. Allergies: NKDA. Beans. Social history: No smoking. No alcohol. No illicit drugs. Surgical history: 5 laparoscopy PMD: Dr. Giselle Lynch <Germán Fajardo - Last Filed: 05/06/17 02:42> - General Chief Complaint: Pain Stated Complaint: PAIN, ACUTE/9 WKS Time Seen by Provider: 05/05/17 22:28 Past History - Past Medical History Asthma: Yes COPD: No Disorders: Yes (endometriosis) - Surgical History Abdominal Surgery: Yes (laparoscopy X5) - Reproductive History (#): 6 Para: 2 Polycystic Ovaries: Yes Therapeutic (s) & number: Yes (1) Spontaneous : 1 - Immunization History Td Vaccination: No Immunization Up to Date: Yes - Suicide/Smoking/Psychosocial Hx Smoking Status: No Smoking History: Unknown if ever smoked Have you smoked in the past 12 months: No Number of Cigarettes Smoked Daily: 0 Hx Alcohol Use: No Drug/Substance Use Hx: No Substance Use Type: None <Nissa Calloway - Last Filed: 05/06/17 02:37> <Germán Fajardo - Last Filed: 05/06/17 02:42> - Past Medical History Allergies/Adverse Reactions: Allergies Allergy/AdvReac Type Severity Reaction Status Date / Time No Known Drug Allergies Allergy Verified 05/05/17 21:47 beans AdvReac Severe Uncoded 05/05/17 21:47 Home Medications: Ambulatory Orders Vit 108/Iron/Folic AC [ One Tablet] 1 each PO DAILY 05/06/17 Review of Systems - Review of Systems Able to Perform ROS?: Yes Comments:: 05/06/17 02:41 GENERAL/CONSTITUTIONAL: +Chills. No fever No weakness. HEAD, EYES, EARS, NOSE AND THROAT: No change in vision. No ear pain or discharge. No sore throat. GASTROINTESTINAL: +Abdominal pain. +Chills. No vomiting, diarrhea or constipation. GENITOURINARY: No dysuria, frequency, or change in urination. CARDIOVASCULAR: No chest pain or shortness of breath. RESPIRATORY: No cough, wheezing, or hemoptysis. MUSCULOSKELETAL: +Back pain. No joint or muscle swelling or pain. No neck SKIN: No rash NEUROLOGIC: +Headache. No vertigo, loss of consciousness, or change in strength/sensation. ENDOCRINE: No increased thirst. No abnormal weight change. HEMATOLOGIC/LYMPHATIC: No anemia, easy bleeding, or history of blood clots. ALLERGIC/IMMUNOLOGIC: No hives or skin allergy. <Germán Fajardo - Last Filed: 05/06/17 02:42> *Physical Exam - Vital Signs Last Vital Signs Temp Pulse Resp BP Pulse Ox 99.2 F 112 H 20 118/70 98 05/05/17 21:47 05/05/17 21:47 05/05/17 21:47 05/05/17 21:47 05/05/17 21:47 <Nissa Calloway - Last Filed: 05/06/17 02:37> - Vital Signs Last Vital Signs Temp Pulse Resp BP Pulse Ox 99.2 F 112 H 20 118/70 98 05/05/17 21:47 05/05/17 21:47 05/05/17 21:47 05/05/17 21:47 05/05/17 21:47 - Physical Exam Comments: 05/06/17 02:42 GENERAL: Awake, alert, and fully oriented, in no acute distress HEAD: No signs of trauma EYES: PERRLA, EOMI, sclera anicteric, conjunctiva clear ENT: Auricles normal inspection, hearing grossly normal, nares patent, oropharynx clear without exudates. Moist mucosa NECK: Normal ROM, supple, no lymphadenopathy, JVD, or masses LUNGS: Breath sounds equal, clear to auscultation bilaterally. No wheezes, and no crackles HEART: +Tachycardic. Regular rhythm, normal S1 and S2, no murmurs, rubs or gallops ABDOMEN: +Right pelvic and superpubic discomfort. Soft, nontender, normoactive bowel sounds. No guarding, no rebound. No masses PELVIC: +Right adnexal tenderness. +Scant white discharge. EXTREMITIES: Normal range of motion, no edema. No clubbing or cyanosis. No cords, erythema, or tenderness NEUROLOGICAL: Cranial nerves II through XII grossly intact. Normal speech, normal gait SKIN: Warm, Dry, normal turgor, no rashes or lesions noted. <Germán Fajardo - Last Filed: 05/06/17 02:42> ED Treatment Course - LABORATORY CBC & Chemistry Diagram: 05/05/17 23:55 05/05/17 23:55 <Nissa Calloway - Last Filed: 05/06/17 02:37> - LABORATORY CBC & Chemistry Diagram: 05/05/17 23:55 05/05/17 23:55 - ADDITIONAL ORDERS Additional order review: Laboratory Results 05/05/17 05/05/17 05/05/17 23:55 23:55 23:55 Sodium 136 Potassium 3.7 Chloride 102 Carbon Dioxide 22 Anion Gap 12 BUN 8 Creatinine 0.6 Creat Clearance w eGFR > 60 Random Glucose 90 Calcium 8.5 Total Bilirubin 1.5 H D AST 18 ALT 30 Alkaline Phosphatase 73 Total Protein 7.4 Albumin 3.5 Beta HCG, Quant 756896.2 Urine Color Yellow Urine Appearance Clear Urine pH 6.0 Ur Specific [place] 1.017 Urine Protein Negative Urine Glucose (UA) Negative Urine Ketones Trace H Urine Blood Negative Urine Nitrite Negative Urine Bilirubin Negative Urine Urobilinogen 4.0 e.u/dl H Ur Leukocyte Esterase Negative Blood Type Cancelled Antibody Screen Cancelled 05/05/17 23:55 RBC 4.29 MCV 82.2 MCHC 35.8 RDW 14.0 MPV 8.2 Neutrophils % 79.3 D Lymphocytes % 14.1 D Monocytes % 5.7 Eosinophils % 0.7 Basophils % 0.2 - Medications Given in the ED: ED Medications Discontinued Medications Generic Name Dose Route Start Last Admin Trade Name Devin PRN Reason Stop Dose Admin Metoclopramide HCl 10 mg 05/05/17 23:05 05/06/17 00:00 Reglan Injection - IVPUSH 05/05/17 23:06 10 mg ONCE ONE Administration Sodium Chloride 1,000 ml 05/05/17 23:05 05/05/17 23:59 Normal Saline - IV 05/05/17 23:06 1,000 ml ONCE ONE Administration <Germán Fajardo - Last Filed: 05/06/17 02:42> Medical Decision Making - Medical Decision Making 05/05/17 23:51 a/p: 37yo female who is at 9 weeks with R pelvic pain and chills -will check labs -will discuss with Dr. Iqbal since pt had ultrasound performed at clinic today -pelvic exam with TTP over R adnexa -will monitor and reassess 05/05/17 23:[address] Iqbal - will check office notes and call back 05/05/17 23:[address] Iqbal - ultrasound showed IUP with FHR, unable to visualize R ovary will repeat ultrasound no ttp over mcburneys 05/06/17 02:37 pt resting comfortably easily arousable ultrasound shows IUP at 9w2d with FHR 185 R ovarian cyst measuring 1.2cm discussed ultrasound and lab results with the paitent abd soft, no ttp over mcburneys No ruq ttp no nausea now no estrada no dysuria -discharge on pelvic exam consistent with no cmt case discussed earlier with dr. iqbal who recommends outpt follow up next week in the office for re-eval discussed appendicitis precautions discussed all reasons to return to the ED. Answered all questions. pt feeling better. stable for d/c to home. nontoxic in appearance <Nissa Calloway - Last Filed: 05/06/17 02:37> *DC/Admit/Observation/Transfer - Discharge Dispostion Admit: No - Attestations Physician Attestion: 05/06/17 02:41 I, Dr. Nissa Calloway, DO, attest that this document has been prepared under my direction and personally reviewed by me in its entirety. I further attest, that it accurately reflects all work, treatment, procedures and medical decision -making performed by me. <Nissa Calloway - Last Filed: 05/06/17 02:37> - Attestations Scribe Attestion: 05/06/17 02:42 Documentation prepared by Germán Fajardo, acting as mobile paramedical examiner for Nissa Calloway DO, MD/. <Germán Fajardo - Last Filed: 05/06/17 02:42> Diagnosis at time of Disposition: Pelvic pain, First trimester , Right ovarian cyst - Discharge Dispostion Disposition: HOME - Referrals Referrals: Giselle Lynch [Primary Care Provider] - Jaziel Iqbal MD [Staff Physician] - - Patient Instructions Printed Discharge Instructions: DI for Ovarian Cyst Additional Instructions: Please continue to take vitamins. Please follow up with CONCESSION CASHIER next week. Please return to the ED with any further concerns. - Post Discharge Activity
[2017-05-05] MEDS ORDERED: SODIUM CHLORIDE 0.9% 1000 ML INFUS.BAG IV ONE (23:05)
[2017-05-05] MEDS ORDERED: METOCLOPRAMIDE HCL INJECTION 10 MG/2 ML VIAL IVPUSH ONE (23:05)
[2017-05-05] MEDS ORDERED: METOCLOPRAMIDE HCL INJECTION 10 MG/2 ML VIAL ONE (23:29)
[2017-05-06 00:15] LABS: BASO % 0.2 % (0-2.0); EOS % 0.7 % (0-4.5); HEMATOCRIT 35.3 % (32.4-45.2); HEMOGLOBIN 12.6 GM/dL (10.7-15.3); LYMPH % 14.1 % (8-40); MCH 29.4 pg (25.7-33.7); MCHC 35.8 g/dl (32.0-36.0); MEAN CELL VOLUME 82.2 fl (80-96); MEAN PLT VOLUME 8.2 fl (7.5-11.1); MONO % 5.7 % (3.8-10.2); NEUT % 79.3 % (42.8-82.8); PLATELET COUNT 272 K/MM3 (134-434); RBC 4.29 M/mm3 (3.60-5.2); WHITE BLOOD COUNT 5.6 K/mm3 (4.0-10.0)
[2017-05-06 00:18] LABS: URINE APPEARANCE CLEAR; URINE BILIRUBIN NEGATIVE (NEGATIVE); URINE BLOOD NEGATIVE (NEGATIVE); URINE COLOR YELLOW; URINE GLUCOSE (UA) NEGATIVE (NEGATIVE); URINE KETONE TRACE (NEGATIVE); URINE LEUK ESTERASE NEGATIVE (NEGATIVE); URINE NITRITE NEGATIVE (NEGATIVE); URINE PROTEIN NEGATIVE (NEGATIVE); URINE UROBILINOGEN 4.0 E.U/dl mg/dL (0.2-1.0)
[2017-05-06 00:45] LABS: ALBUMIN 3.5 g/dl (3.4-5.0); ANION GAP 12 (8-16); BLOOD UREA NITROGEN 8 mg/dL (7-18); CALCIUM 8.5 mg/dL (8.5-10.1); CHLORIDE 102 mmol/L (98-107); CO2 22 mmol/L (21-32); CREATININE 0.6 mg/dL (0.55-1.02); GLUCOSE,RANDOM 90 mg/dL (74-106); POTASSIUM 3.7 mmol/L (3.5-5.1); SGOT/AST 18 U/L (15-37); SGPT/ALT 30 U/L (12-78); SODIUM 136 mmol/L (136-145)
[2017-05-06 01:01] LABS: ALK PHOS 73 U/L (45-117); BILIRUBIN,TOTAL 1.5 mg/dL (0.2-1.0); TOT PROT 7.4 g/dl (6.4-8.2)
== END 2017-05-06 02:51 | disposition home or self-care (01) ==
LOC: JER 21:36
PROC: 3E033GC Introduction of Other Therapeutic Substance into Peripheral Vein, Percutaneous Approach (ICD-10-PCS; principal; 2017-05-05)
DX: O26.891 Other specified pregnancy related conditions, first trimester (principal); R10.2 Pelvic and perineal pain; N83.201 Unspecified ovarian cyst, right side; R51 Headache; Z3A.09 9 weeks gestation of pregnancy
CPT/HCPCS: 36415; 76801-TC; 80053; 81003; 84702; 85025; 86850; 86900; 86901; 99282-25

== ENCOUNTER 2018-04-20 09:25 | Emergency (ER) | payer OTHER ==
[2018-04-20 09:31] VITALS: TEMP 98.2; BMI 26.9
--- NOTE | 2018-04-20 09:36 | PDOC ---
History of Present Illness - General Chief Complaint: Pain, Acute Stated Complaint: ABD PAIN Time Seen by Provider: 04/20/18 09:36 History Source: Patient Exam Limitations: No Limitations - History of Present Illness Initial Comments: 04/20/18 11:53 Patient is a 38-year-old female with past medical history of endometriosis, ovarian cysts, adenomyosis, asthma and PCOS presents to the ER abdominal pain for one week. Patient states that her symptoms have been increasingly getting worse. She is taking both Tylenol and Motrin without relief of her symptoms. Patient states she is recently 5 months and is currently breast- feeding. Patient also reports that she has surgery planned for in May with [facility] for a prophylactic hysterectomy. Denies fevers, chills, nausea, vomiting, chest pain, shortness of breath, frequency, urgency and hematuria. Past History - Travel Traveled outside of the country in the last 30 days: No Close contact w/someone who was outside of country & ill: No - Past Medical History Allergies/Adverse Reactions: Allergies Allergy/AdvReac Type Severity Reaction Status Date / Time No Known Drug Allergies Allergy Verified 04/20/18 09:28 beans AdvReac Severe Swelling Uncoded 04/20/18 09:28 Home Medications: Ambulatory Orders Vit 108/Iron/Folic AC [ One Tablet] 1 each PO DAILY 05/06/17 Cephalexin Monohydrate [Keflex -] 500 mg PO BID #14 capsule 04/20/18 Asthma: Yes COPD: No Disorders: Yes (endometriosis) - Surgical History Abdominal Surgery: Yes (laparoscopy X5) - Reproductive History (#): 6 Para: 2 Polycystic Ovaries: Yes Therapeutic (s) & number: Yes (1) Spontaneous : 1 - Immunization History Td Vaccination: No Immunization Up to Date: Yes - Suicide/Smoking/Psychosocial Hx Smoking Status: No Smoking History: Never smoked Have you smoked in the past 12 months: No Number of Cigarettes Smoked Daily: 0 Hx Alcohol Use: No Drug/Substance Use Hx: No Substance Use Type: None Review of Systems - Review of Systems Able to Perform ROS?: Yes Comments:: 04/20/18 11:31 CONSTITUTIONAL: Absent: fever, chills, diaphoresis, generalized weakness, malaise, loss of appetite HEENT: Absent: rhinorrhea, nasal congestion, throat pain, throat swelling, difficulty swallowing, mouth swelling, ear pain, eye pain, visual Changes CARDIOVASCULAR: Absent: chest pain, loss of consciousness, palpitations, irregular heart rate, peripheral edema RESPIRATORY: Absent: cough, shortness of breath, dyspnea with exertion, orthopnea, wheezing, stridor, hemoptysis GASTROINTESTINAL: Present: abdominal pain Absent: abdominal distension, nausea, vomiting, diarrhea , constipation, melena, hematochezia GENITOURINARY: Absent: dysuria, frequency, urgency, hesitancy, hematuria, flank pain, genital pain MUSCULOSKELETAL: Absent: myalgia, arthralgia, joint swelling SKIN: Absent: rash, itching, pallor HEMATOLOGIC/IMMUNOLOGIC: Absent: easy bleeding, easy bruising, lymphadenopathy, frequent infections ENDOCRINE: Absent: unexplained weight gain, unexplained weight loss, heat intolerance, cold intolerance NEUROLOGIC: Absent: headache, focal weakness or paresthesias, dizziness, unsteady gait, seizure, mental status changes, bladder or bowel incontinence PSYCHIATRIC: Absent: anxiety, depression, suicidal or homicidal ideation, hallucinations. Is the patient limited Dutch proficient: No *Physical Exam - Vital Signs Last Vital Signs Temp Pulse Resp BP Pulse Ox 98.2 F 74 20 124/80 99 04/20/18 09:29 04/20/18 09:29 04/20/18 09:29 04/20/18 09:29 04/20/18 09:29 - Physical Exam Comments: 04/20/18 11:32 GENERAL: Well developed, well nourished. Awake and alert. Patient appears uncomfortable. HEENT: Normocephalic, atraumatic. PERRLA, EOMI. No conjunctival pallor. Sclera are non- icteric. Moist mucous membranes. Oropharynx is clear. NECK: Supple. Full ROM. No JVD. Carotid pulses 2+ and symmetric, without bruits. No thyromegaly. No lymphadenopathy. CARDIOVASCULAR: Regular rate and rhythm. No murmurs, rubs, or gallops. Distal pulses are 2+ and symmetric. PULMONARY: No evidence of respiratory distress. Lungs clear to auscultation bilaterally. No wheezing, rales or rhonchi. ABDOMINAL: TTP of the lower abdomen and suprapubic area. Soft. Non-distended. No rebound or guarding. No organomegaly. Normoactive bowel sounds. : Pelvic deferred. Bimanual performed. Adenexal tenderness on the R worse than left. No CMT. Pt with physiological discharge. MUSCULOSKELETAL Normal range of motion at all joints. No bony deformities or tenderness. No CVA tenderness. EXTREMITIES: No cyanosis. No clubbing. No edema. No calf tenderness. SKIN: Warm and dry. Normal capillary refill. No rashes. No jaundice. NEUROLOGICAL: Alert, awake, appropriate. Cranial nerves 2-12 intact. No deficits to light touch and temperature in face, upper extremities and lower extremities. No motor deficits in the in face, upper extremities and lower extremities. Normoreflexic in the upper and lower extremities. Normal speech. Toes are down- going bilaterally. Gait is normal without ataxia. PSYCHIATRIC: Cooperative. Good eye contact. Appropriate mood and affect. Moderate Sedation - Procedure Monitoring Vital Signs: Procedure Monitoring Vital Signs Temperature 98.2 F 04/20/18 09:29 Pulse Rate 74 04/20/18 09:29 Respiratory Rate 20 04/20/18 09:29 Blood Pressure 124/80 04/20/18 09:29 O2 Sat by Pulse Oximetry (%) 99 04/20/18 09:29 ED Treatment Course - LABORATORY CBC & Chemistry Diagram: 04/20/18 10:00 04/20/18 10:00 Medical Decision Making - Medical Decision Making 04/20/18 12:54 Patient is a 38-year-old female who presents with lower abdominal pain in the setting of endometriosis, ovarian cysts, PCOS who is currently breast-feeding. On exam patient with lower abdominal pain through the left lower quadrant suprapubic area and right lower quadrant. Patient cannot tolerate vaginal exam. Bimanual performed. Adnexal tenderness worse on the right than left. No CMT. Physiological discharge. Transvaginal ultrasound shows a cyst on the right. Approximately 1 cm. Urine shows evidence of infection. We'll treat with antibiotics at this time. Pain medications given with improvement of symptoms. Patient is asking for discharge at this time. I discussed the physical exam findings, ancillary test results and final diagnoses with the patient. I answered all of the patient's questions. The patient was satisfied with the care received and felt comfortable with the discharge plan and treatment plan. The Patient agrees to follow up with the primary care physician/specialist within 24-72 hours. Return precautions were given. *DC/Admit/Observation/Transfer Diagnosis at time of Disposition: Right ovarian cyst, Endometriosis determined by laparoscopy, Lower abdominal pain - Discharge Dispostion Disposition: HOME Condition at time of disposition: Stable Decision to Admit order: No - Prescriptions Prescriptions: Cephalexin Monohydrate [Keflex -] 500 mg PO BID #14 capsule - Referrals Referrals: Giselle Lynch [Primary Care Provider] - - Patient Instructions Printed Discharge Instructions: DI for Ovarian Cyst Additional Instructions: You have an ovarian cyst, UTI and an endometriosis flare Please take the Keflex twice a day for 7 days for the UTI Do not breast feed while taking the antibiotics You may take Motrin 800mg every 8 hours for pain Please follow with your CERTIFIED FAMILY MEDIATOR as soon as possible Return to the ED for new or worsening symptoms. - Post Discharge Activity Forms/Work/School Notes: Back to Work
[2018-04-20] MEDS ORDERED: traMADol HCL 50 MG TABLET PO ONE (09:51)
[2018-04-20] MEDS ORDERED: SODIUM CHLORIDE 1,000 ML IV STA (09:51)
[2018-04-20] MEDS ORDERED: ONDANSETRON *ODT* 4 MG TABLET SL ONE (09:51)
[2018-04-20 10:05] LABS: BASO % 0.6 % (0-2.0); EOS % 7.1 % (0-4.5); HEMATOCRIT 37.1 % (32.4-45.2); HEMOGLOBIN 13.3 GM/dL (10.7-15.3); LYMPH % 42.1 % (8-40); MCH 30.1 pg (25.7-33.7); MCHC 35.9 g/dl (32.0-36.0); MEAN PLT VOLUME 7.8 fl (7.5-11.1); NEUT % 44.2 % (42.8-82.8); PLATELET COUNT 249 K/MM3 (134-434); RBC 4.42 M/mm3 (3.60-5.2); RDW 13.3 % (11.6-15.6); WHITE BLOOD COUNT 4.8 K/mm3 (4.0-10.0)
[2018-04-20] MEDS ORDERED: morphine SULFATE 4 MG/ML VIAL ONE (10:08)
[2018-04-20] MEDS ORDERED: ONDANSETRON 4 MG/2 ML VIAL ONE (10:08)
[2018-04-20 10:13] LABS: URINE APPEARANCE SLCLOUDY; URINE BILIRUBIN NEGATIVE (<2.0 mg/dL); URINE COLOR YELLOW; URINE GLUCOSE (UA) NEGATIVE (NEGATIVE); URINE KETONE NEGATIVE (NEGATIVE); URINE LEUK ESTERASE 2+ (NEGATIVE); URINE NITRITE NEGATIVE (NEGATIVE); URINE PROTEIN NEGATIVE (NEGATIVE)
[2018-04-20 10:22] LABS: EPI CELLS FEW /HPF (FEW); URINE BACTERIA RARE /hpf (NONE SEEN); URINE MUCUS FEW
[2018-04-20] MEDS ORDERED: morphine CARPU-JECT 4 MG/1 ML DISP.SYRIN IVPUSH ONE (10:28)
[2018-04-20] MEDS ORDERED: ONDANSETRON 4 MG/2 ML VIAL IVPUSH ONE (10:28)
[2018-04-20 10:33] LABS: ALBUMIN 3.8 g/dl (3.4-5.0); ALK PHOS 138 U/L (45-117); ANION GAP 7 MMOL/L (8-16); BILIRUBIN,TOTAL 0.8 mg/dL (0.2-1); BLOOD UREA NITROGEN 9 mg/dL (7-18); CALCIUM 8.9 mg/dL (8.5-10.1); CHLORIDE 106 mmol/L (98-107); CO2 26 mmol/L (21-32); CREATININE 0.8 mg/dL (0.55-1.3); GLUCOSE,RANDOM 85 mg/dL (74-106); POTASSIUM 4.3 mmol/L (3.5-5.1); SGOT/AST 36 U/L (15-37); SGPT/ALT 88 U/L (13-61); SODIUM 139 mmol/L (136-145); TOT PROT 7.4 g/dl (6.4-8.2)
[2018-04-20 10:56] LABS: HCG,QUALITATIVE URINE Negative
[2018-04-20] MEDS ORDERED: MORPHINE SULFATE 2 MG/ML VIAL ONE (12:05)
[2018-04-20] MEDS ORDERED: morphine CARPU-JECT 2 MG/1 ML DISP.SYRIN IVPUSH ONE (12:08)
[2018-04-20] MEDS ORDERED: KETOROLAC TROMETHAMINE 15 MG/ML VIAL IVPUSH ONE (13:20)
[2018-04-20] MEDS ORDERED: KETOROLAC TROMETHAMINE 30 MG/1 ML VIAL ONE (13:49)
[2018-04-20] MEDS ORDERED: CEPHALEXIN MONOHYDRATE 500 MG CAPSULE (UD) ONE (13:49)
[2018-04-20] MEDS ORDERED: CEPHALEXIN MONOHYDRATE 500 MG CAPSULE (UD) PO ONE (13:54)
[2018-04-20 13:57] VITALS: BP 121/61; PULSE 77
== END 2018-04-20 13:57 | disposition home or self-care (01) ==
LOC: JER 09:25
DX: N83.201 Unspecified ovarian cyst, right side (principal); N39.0 Urinary tract infection, site not specified; N80.8 Other endometriosis
CPT/HCPCS: 36415; 76830-TC; 80053; 81003; 81015; 84703; 85025; 87086; 99283-25; J7030

== ENCOUNTER 2018-05-05 15:34 | Inpatient (IN) | payer OTHER ==
[2018-05-05] MEDS ORDERED: IBUPROFEN 400 MG TABLET (FP) PO ONE (15:45)
--- NOTE | 2018-05-05 15:47 | PDOC ---
Rapid Medical Evaluation Chief Complaint: Pain Medical Evaluation: Allergies Allergy/AdvReac Type Severity Reaction Status Date / Time No Known Drug Allergies Allergy Verified 04/20/18 09:28 beans AdvReac Severe Swelling Uncoded 04/20/18 09:28 05/05/18 15:41 I have performed a brief in-person evaluation of this patient. The patient presents with a chief complaint of: abd pain - lower abd, + hysterectomy scheduled due to endometriosis in 24 days at [facility]. , used 3 large pads today with heavy bleeding , No fevers Pertinent physical exam findings: Pale, low abd pain I have ordered the following: CBC, CMP UA/ UcG The patient will proceed to the ED for further evaluation Discharge Disposition - Diagnosis Lower abdominal pain - Referrals - Patient Instructions - Post Discharge Activity
--- NOTE | 2018-05-05 16:55 | PDOC ---
History of Present Illness - General History Source: Patient Exam Limitations: No Limitations - History of Present Illness Initial Comments: 05/05/18 17:56 The patient is a 38-year-old female with a past medical history significant for endometriosis, ovarian cysts (usually on the right), adenomyosis and asthma present to the emergency department with vaginal bleeding. The patient reports she is 5 months and following a paragard was placed. The patient reports since April 01 shes been having intermittent, every other week, heavy vaginal bleeding, associated with suprapubic tenderness. The patient reports the bleeding started last night, associated with pain. The patient indicates the pain is located suprapubic, thats sharp in quality. The patient reports taking Tylenol PM for the pain, without relief. The patient reports the pain is worse than usual, without relief with Tylenol PM. THe patient reports the bleeding is worse with standing. The patient reports associated symptoms of nausea denies vomiting. The patient reports the pain is similar to prior episodes of endometriosis. The patient was seen at the ER for similar pain about 2 weeks ago at that time she was dx with UTI and sent home with keflex. Denies urinary symptoms. Denies hx of STD. Allergies: NKDA, beans Social history: No past or present history of tobacco, alcohol or drug use. Surgical history: Laparoscopy x5 and scheduled for hysterectomy (May 30) PCP: Giselle Brunson. <Vanessa Alvarado - Last Filed: 05/05/18 17:56> <Nissa Calloway - Last Filed: 05/06/18 00:38> - General Chief Complaint: Vaginal Bleeding Stated Complaint: ABD PAIN Time Seen by Provider: 05/05/18 16:48 Past History <Vanessa Alvarado - Last Filed: 05/05/18 17:56> - Past Medical History Asthma: Yes COPD: No Disorders: Yes (endometriosis) - Surgical History Abdominal Surgery: Yes (laparoscopy X5) - Reproductive History (#): 6 Para: 2 Polycystic Ovaries: Yes Therapeutic (s) & number: Yes (1) Spontaneous : 1 - Immunization History Td Vaccination: No Immunization Up to Date: Yes - Suicide/Smoking/Psychosocial Hx Smoking Status: No Smoking History: Never smoked Have you smoked in the past 12 months: No Number of Cigarettes Smoked Daily: 0 Hx Alcohol Use: No Drug/Substance Use Hx: No Substance Use Type: None <Nissa Calloway - Last Filed: 05/06/18 00:38> - Past Medical History Allergies/Adverse Reactions: Allergies Allergy/AdvReac Type Severity Reaction Status Date / Time No Known Drug Allergies Allergy Verified 05/05/18 15:41 beans AdvReac Severe Swelling Uncoded 05/05/18 15:41 Home Medications: Ambulatory Orders Vit 108/Iron/Folic AC [ One Tablet] 1 each PO DAILY 05/06/17 Cephalexin Monohydrate [Keflex -] 500 mg PO BID #14 capsule 04/20/18 Review of Systems - Review of Systems Able to Perform ROS?: Yes Comments:: 05/05/18 17:26 GENERAL/CONSTITUTIONAL: No fever or chills. No weakness. HEAD, EYES, EARS, NOSE AND THROAT: No change in vision. No ear pain or discharge. No sore throat. CARDIOVASCULAR: No chest pain or shortness of breath. RESPIRATORY: No cough, wheezing, or hemoptysis. GASTROINTESTINAL: +nausea and suprapubic pain. No vomiting, diarrhea or constipation. GENITOURINARY: +vaginal bleeding. No dysuria, frequency, or change in urination. MUSCULOSKELETAL: No joint or muscle swelling or pain. No neck or back pain. SKIN: No rash NEUROLOGIC: No headache, vertigo, loss of consciousness, or change in strength/ sensation. ENDOCRINE: No increased thirst. No abnormal weight change. HEMATOLOGIC/LYMPHATIC: No anemia, easy bleeding, or history of blood clots. ALLERGIC/IMMUNOLOGIC: No hives or skin allergy. <Vanessa Alvarado - Last Filed: 05/05/18 17:56> *Physical Exam - Vital Signs Last Vital Signs Temp Pulse Resp BP Pulse Ox 98.6 F 81 17 140/98 99 05/05/18 15:42 05/05/18 15:42 05/05/18 15:42 05/05/18 15:42 05/05/18 15:42 - Physical Exam Comments: 05/05/18 17:25 GENERAL: Awake, alert, and fully oriented, in no acute distress HEAD: No signs of trauma EYES: PERRLA, EOMI, sclera anicteric, conjunctiva clear ENT: Auricles normal inspection, hearing grossly normal, nares patent, oropharynx clear without exudates. Moist mucosa NECK: Normal ROM, supple, no lymphadenopathy, JVD, or masses LUNGS: Breath sounds equal, clear to auscultation bilaterally. No wheezes, and no crackles HEART: Regular rate and rhythm, normal S1 and S2, no murmurs, rubs or gallops ABDOMEN: +lower pelvic tenderness to palpation. Soft, No guarding, no rebound. Pelvic exam: Bright red blood in the cervix, cervix closed, no CMT, paragard string felt, right greater than left adnexal tenderness. EXTREMITIES: Normal range of motion, no edema. No clubbing or cyanosis. No cords, erythema, or tenderness NEUROLOGICAL: Cranial nerves II through XII grossly intact. Normal speech, normal gait SKIN: Warm, Dry, normal turgor, no rashes or lesions noted. <Vanessa Alvarado - Last Filed: 05/05/18 17:56> - Vital Signs Last Vital Signs Temp Pulse Resp BP Pulse Ox 98.6 F 81 17 140/98 99 05/05/18 15:42 05/05/18 15:42 05/05/18 15:42 05/05/18 15:42 05/05/18 15:42 <Nissa Calloway - Last Filed: 05/06/18 00:38> Moderate Sedation - Procedure Monitoring Vital Signs: Procedure Monitoring Vital Signs Temperature 98.6 F 05/05/18 15:42 Pulse Rate 81 05/05/18 15:42 Respiratory Rate 17 05/05/18 15:42 Blood Pressure 140/98 05/05/18 15:42 O2 Sat by Pulse Oximetry (%) 99 05/05/18 15:42 <Vanessa Alvarado - Last Filed: 05/05/18 17:56> - Procedure Monitoring Vital Signs: Procedure Monitoring Vital Signs Temperature 98.6 F 05/05/18 15:42 Pulse Rate 81 05/05/18 15:42 Respiratory Rate 17 05/05/18 15:42 Blood Pressure 140/98 05/05/18 15:42 O2 Sat by Pulse Oximetry (%) 99 05/05/18 15:42 <Nissa Calloway - Last Filed: 05/06/18 00:38> ED Treatment Course - LABORATORY CBC & Chemistry Diagram: 05/05/18 17:06 05/05/18 17:06 - ADDITIONAL ORDERS Additional order review: 05/05/18 17:06 RBC 4.74 MCV 83.3 MCHC 35.5 RDW 13.0 MPV 8.0 Neutrophils % 53.9 D Lymphocytes % 36.7 Monocytes % 5.7 Eosinophils % 3.3 Basophils % 0.4 <Vanessa Alvarado - Last Filed: 05/05/18 17:56> - LABORATORY CBC & Chemistry Diagram: 05/05/18 17:06 05/05/18 17:06 <Nissa Calloway - Last Filed: 05/06/18 00:38> Medical Decision Making - Medical Decision Making 05/05/18 17:30 a/p: 38yo female with intermittent heavy vaginal bleeding and cramping since having the paraguard placed -hx of endometriosis and hx of ovarian cysts -3 pads today -no lightheaded or dizziness -has appt to see [facility] CL[facility] at [facility] for next week -will send labs - check h/h and obtain tvus to ensure no torsion -scheduled for DELMY in 24 days at [facility] for tx of endometriosis 05/05/18 23:46 urine shows blood labs reviewed upreg negative 05/06/18 00:24 pt with acute appy on ct case discussed with Dr. Taveras pt updated will start abx pt will be admitted for surgery tomorrow pt agreeable to stay for surgery tomorrow 05/06/18 00:[address] Sanches who accepts pt to service <Nissa Calloway - Last Filed: 05/06/18 00:38> *DC/Admit/Observation/Transfer - Attestations Scribe Attestion: 05/05/18 17:26 Documentation prepared by Vanessa Alvarado, acting as medical billing representative for Nissa Calloway DO. <Vanessa Alvarado - Last Filed: 05/05/18 17:56> - Discharge Dispostion Decision to Admit order: Yes - Attestations Physician Attestion: 05/06/18 00:28 I, Dr. Nissa Calloway DO, attest that this document has been prepared under my direction and personally reviewed by me in its entirety. I further attest, that it accurately reflects all work, treatment, procedures and medical decision -making performed by me. <Nissa Calloway - Last Filed: 05/06/18 00:38> Diagnosis at time of Disposition: Lower abdominal pain, Appendicitis - Discharge Dispostion Condition at time of disposition: Fair - Referrals Referrals: Giselle Lynch [Primary Care Provider] - - Patient Instructions - Post Discharge Activity
[2018-05-05 17:16] LABS: BASO % 0.4 % (0-2.0); EOS % 3.3 % (0-4.5); HEMATOCRIT 39.5 % (32.4-45.2); LYMPH % 36.7 % (8-40); MCH 29.6 pg (25.7-33.7); MCHC 35.5 g/dl (32.0-36.0); MEAN CELL VOLUME 83.3 fl (80-96); MONO % 5.7 % (3.8-10.2); NEUT % 53.9 % (42.8-82.8); PLATELET COUNT 291 K/MM3 (134-434); RBC 4.74 M/mm3 (3.60-5.2)
[2018-05-05] MEDS ORDERED: ACETAMINOPHEN 325 MG TABLET (FP) PO ONE (17:33)
[2018-05-05] MEDS ORDERED: KETOROLAC TROMETHAMINE 60 MG/2 ML VIAL IM ONE (17:33)
[2018-05-05] MEDS ORDERED: ACETAMINOPHEN 325 MG TABLET (FP) ONE (17:52)
[2018-05-05] MEDS ORDERED: KETOROLAC TROMETHAMINE 60 MG/2 ML VIAL ONE (17:52)
[2018-05-05] MEDS ORDERED: oxyCODONE HCL 5 MG TABLET ONE (20:18)
[2018-05-05] MEDS ORDERED: morphine SULFATE 4 MG/ML VIAL ONE (20:58)
[2018-05-05] MEDS ORDERED: ONDANSETRON 4 MG/2 ML VIAL ONE (20:59)
[2018-05-05 23:12] LABS: ALBUMIN 4.1 g/dl (3.4-5.0); ALK PHOS 133 U/L (45-117); ANION GAP 7 MMOL/L (8-16); BILIRUBIN,TOTAL 1.2 mg/dL (0.2-1); BLOOD UREA NITROGEN 11 mg/dL (7-18); CHLORIDE 106 mmol/L (98-107); CO2 25 mmol/L (21-32); CREATININE 0.8 mg/dL (0.55-1.3); GLUCOSE,RANDOM 83 mg/dL (74-106); POTASSIUM 4.3 mmol/L (3.5-5.1); SGOT/AST 42 U/L (15-37); SGPT/ALT 109 U/L (13-61); SODIUM 138 mmol/L (136-145); TOT PROT 8.1 g/dl (6.4-8.2)
[2018-05-06] MEDS ORDERED: ONDANSETRON 4 MG/2 ML VIAL IVPUSH ONE (00:36)
[2018-05-06] MEDS ORDERED: SODIUM CHLORIDE 0.9% 1000 ML INFUS.BAG IV ONE (00:36)
--- NOTE | 2018-05-06 00:48 | HP ---
CHIEF COMPLAINT: suprapubic pain PCP: Giselle Brunson. HISTORY OF PRESENT ILLNESS: 38-year-old woman c/o vaginal bleeding- intermittent since beginning of March , associated with suprapubic pain, sharp in nature. She took tylenol without much relief. She is 5 months and had paraguard copper IUD placed right after. CT of abdomen and pelvis in ER suspicious for acute appendicitis. Dr. Taveras was contacted and aware. ER course was notable for: (1) CT of abdomen/pelvis (2) (3) Recent Travel: no PAST MEDICAL HISTORY: endometriosis, ovarian cysts (usually on the right), adenomyosis and asthma PAST SURGICAL HISTORY: Laparoscopy x5 and scheduled for hysterectomy (May 30 ) Social History: No past or present history of tobacco, alcohol or drug use. Family History: Allergies No Known Drug Allergies Allergy (Verified 05/05/18 15:41) beans Adverse Reaction (Severe, Uncoded 05/05/18 15:41) Swelling Anaphylactic-carries Epipen HOME MEDICATIONS: Home Medications Medication Instructions Recorded Vit 108/Iron/Folic AC 1 each PO DAILY 05/06/17 [ One Tablet] Cephalexin Monohydrate [Keflex -] 500 mg PO BID #14 capsule 04/20/18 REVIEW OF SYSTEMS CONSTITUTIONAL: Absent: fever, chills, diaphoresis, generalized weakness, malaise, loss of appetite, weight change HEENT: Absent: rhinorrhea, nasal congestion, throat pain, throat swelling, difficulty swallowing, mouth swelling, ear pain, eye pain, visual changes CARDIOVASCULAR: Absent: chest pain, syncope, palpitations, irregular heart rate, lightheadedness , peripheral edema RESPIRATORY: Absent: cough, shortness of breath, dyspnea with exertion, orthopnea, wheezing, stridor, hemoptysis GASTROINTESTINAL: Absent: , abdominal distension, nausea, vomiting, diarrhea, constipation, melena , hematochezia Present- lower abdominal pain GENITOURINARY: Absent: dysuria, frequency, urgency, hesitancy, hematuria, flank pain, genital pain MUSCULOSKELETAL: Absent: myalgia, arthralgia, joint swelling, back pain, neck pain SKIN: Absent: rash, itching, pallor HEMATOLOGIC/IMMUNOLOGIC: Absent: easy bleeding, easy bruising, lymphadenopathy, frequent infections ENDOCRINE: Absent: unexplained weight gain, unexplained weight loss, heat intolerance, cold intolerance NEUROLOGIC: Absent: headache, focal weakness or paresthesias, dizziness, unsteady gait, seizure, mental status changes, bladder or bowel incontinence PSYCHIATRIC: Absent: anxiety, depression, suicidal or homicidal ideation, hallucinations. PHYSICAL EXAMINATION Vital Signs - 24 hr 05/05/18 15:42 Temperature 98.6 F Pulse Rate 81 Respiratory 17 Rate Blood Pressure 140/98 O2 Sat by Pulse 99 Oximetry (%) GENERAL: Awake, alert, and fully oriented, in no acute distress. HEAD: Normal with no signs of trauma. EYES: Pupils equal, round and reactive to light, extraocular movements intact, sclera anicteric, conjunctiva clear. No lid lag. EARS, NOSE, THROAT: Ears normal, nares patent, oropharynx clear without exudates. Moist mucous membranes. NECK: Normal range of motion, supple without lymphadenopathy, JVD, or masses. LUNGS: Breath sounds equal, clear to auscultation bilaterally. No wheezes, and no crackles. No accessory muscle use. HEART: Regular rate and rhythm, normal S1 and S2 without murmur, rub or gallop. ABDOMEN: Suprapubic tenderness, BS+, soft MUSCULOSKELETAL: Normal range of motion at all joints. No bony deformities or tenderness. No CVA tenderness. UPPER EXTREMITIES: 2+ pulses, warm, well-perfused. No cyanosis. No clubbing. No peripheral edema. LOWER EXTREMITIES: 2+ pulses, warm, well-perfused. No calf tenderness. No peripheral edema. NEUROLOGICAL: Cranial nerves II-XII intact. Normal speech. Normal gait. PSYCHIATRIC: Cooperative. Good eye contact. Appropriate mood and affect. SKIN: Warm, dry, normal turgor, no rashes or lesions noted, normal capillary refill. Laboratory Results - last 24 hr 05/05/18 05/05/18 17:06 17:06 WBC 6.0 RBC 4.74 Hgb 14.0 Hct 39.5 MCV 83.3 MCH 29.6 MCHC 35.5 RDW 13.0 Plt Count 291 MPV 8.0 Absolute Neuts (auto) 3.2 Neutrophils % 53.9 D Lymphocytes % 36.7 Monocytes % 5.7 Eosinophils % 3.3 Basophils % 0.4 Nucleated RBC % 0 Sodium 138 Potassium 4.3 Chloride 106 Carbon Dioxide 25 Anion Gap 7 L BUN 11 Creatinine 0.8 Creat Clearance w eGFR > 60 Random Glucose 83 Calcium 9.0 Total Bilirubin 1.2 H AST 42 H ALT 109 H Alkaline Phosphatase 133 H Total Protein 8.[address] of abdomen report reviewed ASSESSMENT/PLAN: #Acute Appendicitis. - uncomplicated -admit to med/surg -IV fluid hydration -s/p ceftriaxone and metronidazole -morphine 2mg iV q4hrs -zofran 4mg IV q4hrs prn if nausea or vomiting -IV fluid -NPO -surgery consult -PT/PTT/type and screen -ekg -f/u CT abdomen /pelvis report and transvaginal US report -UA -SCDs for dvt ppx Visit type - Emergency Visit Emergency Visit: Yes Care time: The patient presented to the Emergency Department on the above date and was hospitalized for further evaluation of their emergent condition. - New Patient This patient is new to me today: Yes Date on this admission: 05/06/18 - Critical Care Critical Care patient: No
[2018-05-06] MEDS ORDERED: CEFTRIAXONE 1 GM/50 ML BAG ONE (00:56)
[2018-05-06] MEDS ORDERED: ONDANSETRON 4 MG/2 ML VIAL ONE (01:16)
[2018-05-06] MEDS ORDERED: MORPHINE SULFATE 2 MG/ML VIAL ONE (01:16)
[2018-05-06 03:14] LABS: PROTHROMBIN TIME (PATIENT) 11.8 SEC (9.7-13.0)
[2018-05-06 03:16] LABS: ACTIVATED PTT 28.6 SECONDS (25.2-36.5)
[2018-05-06 04:13] VITALS: BMI 33.0
[2018-05-06] MEDS ORDERED: CEFTRIAXONE 1 GM in DEXTROSE 5%-WATER - 50 ML IVPB ONE (04:15)
[2018-05-06] MEDS ORDERED: cefTRIAXone SODIUM 1 GM VIAL ONE (04:18)
[2018-05-06] MEDS ORDERED: DEXTROSE 5%-WATER - 50 ML IVPB ONE (04:18)
[2018-05-06] MEDS: MORPHINE SULFATE 2 MG/ML VIAL IVPUSH PRN ×4 (04:26→13:37)
[2018-05-06] MEDS: ONDANSETRON 4 MG/2 ML VIAL IVPUSH PRN ×2 (04:26→21:55)
[2018-05-06] MEDS: SODIUM CHLORIDE 1,000 ML IV SCH (04:28)
[2018-05-06 05:20] LABS: URINE APPEARANCE SLCLOUDY; URINE BILIRUBIN NEGATIVE (<2.0 mg/dL); URINE COLOR YELLOW; URINE GLUCOSE (UA) NEGATIVE (NEGATIVE); URINE KETONE NEGATIVE (NEGATIVE); URINE LEUK ESTERASE NEGATIVE (NEGATIVE); URINE NITRITE NEGATIVE (NEGATIVE); URINE PROTEIN 1+ (NEGATIVE); URINE UROBILINOGEN NEGATIVE mg/dL (0.2-1.0)
[2018-05-06 05:26] LABS: EPI CELLS RARE /HPF (FEW); URINE MUCUS RARE
[2018-05-06 06:02] LABS: HCG,QUALITATIVE URINE NEGATIVE
--- NOTE | 2018-05-06 09:49 | PN ---
Progress Note, Physician - Current Medication List Current Medications: Active Medications Sodium Chloride (Normal Saline -) 1,000 mls @ 75 mls/hr IV ASDIR FERNANDO Last Admin: 05/06/18 04:28 Dose: 75 mls/hr Morphine Sulfate (Morphine Sulfate) 2 mg IVPUSH Q4H PRN PRN Reason: PAIN LEVEL 6-10 Last Admin: 05/06/18 08:22 Dose: 2 mg Ondansetron HCl (Zofran Injection) 4 mg IVPUSH Q4H PRN PRN Reason: NAUSEA AND/OR VOMITING Last Admin: 05/06/18 04:26 Dose: 4 mg - Objective Vital Signs: Vital Signs Temperature 97.8 F 05/06/18 03:56 Pulse Rate 70 05/06/18 03:56 Respiratory Rate 18 05/06/18 03:56 Blood Pressure 128/65 05/06/18 03:56 O2 Sat by Pulse Oximetry (%) 98 05/06/18 03:56 Cardiovascular: Yes: Regular Rate and Rhythm Respiratory: Yes: Regular, CTA Bilaterally Gastrointestinal: Yes: Normal Bowel Sounds, Soft, Tenderness (LOWER ABDOMINAL) Labs: CBC, BMP 05/05/18 17:06 05/05/18 17:06 INR, PTT INR 1.00 (0.83-1.09) 05/06/18 02:00 Problem List - Problems (1) Appendicitis Assessment/Plan: -REPORTED ON CT -SURGICAL CONSULT -NPO -IVF -PAIN MEDS Code(s): K37 - UNSPECIFIED APPENDICITIS (2) Lower abdominal pain Assessment/Plan: - ABOVE -GI AND ID CONSULTS -FOLLOW LABS Code(s): R10.30 - LOWER ABDOMINAL PAIN, UNSPECIFIED (3) Endometriosis Assessment/Plan: -TOOTH POLISHER CONSULT Code(s): N80.9 - ENDOMETRIOSIS, UNSPECIFIED
--- NOTE | 2018-05-06 10:05 | CONSULT ---
- Consultation REQUESTING PROVIDER: Brodie JACQUES CONSULT REQUEST: We have been asked to surgically evaluate this patient for abdominal pain; possible acute appendicitis. 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 She has associated vaginal bleeding and suprapubic pain and was in the ER w/similar complaints as recently as 2 weeks ago; she has nausea w/o vomiting and denies anorexia and or any /GI problems; she has had alaparoscopy at least 5 times in the past. She states the pain is similar to other episodes of symptomatic endometriosis that she has had; ther is no other pertinent hx. Her pain she states is localized to her suprapubic area and is crampy and sharp w/o appreciable radiation. PMHx: asthma PSHx: laparoscopy Home Medications Medication Instructions Recorded Vit 108/Iron/Folic AC 1 each PO DAILY 05/06/17 [ One Tablet] Cephalexin Monohydrate [Keflex -] 500 mg PO BID #14 capsule 04/20/18 Allergies Allergy/AdvReac Type Severity Reaction Status Date / Time No Known Drug Allergies Allergy Verified 05/05/18 15:41 beans AdvReac Severe Swelling Uncoded 05/05/18 15:41 REVIEW OF SYSTEMS: CONSTITUTIONAL: Absent: fever, chills, diaphoresis, generalized weakness, malaise, loss of appetite, weight change CARDIOVASCULAR: Absent: chest pain, syncope, palpitations, irregular heart rate, lightheadedness , peripheral edema RESPIRATORY: Absent: cough, shortness of breath, dyspnea with exertion, wheezing, stridor, hemoptysis GASTROINTESTINAL: Absent: abdominal pain, abdominal distension, nausea, vomiting, diarrhea, constipation, melena, hematochezia GENITOURINARY: Absent: dysuria, frequency, urgency, hesitancy, hematuria, flank pain, genital pain; PRESNT: pelvic pain and vaginal bleeding MUSCULOSKELETAL: Absent: myalgia, arthralgia, joint swelling, back pain, neck pain SKIN: Absent: rash, itching, pallor HEMATOLOGIC/IMMUNOLOGIC: Absent: easy bleeding, easy bruising, lymphadenopathy NEUROLOGIC: Absent: headache, focal weakness, paresthesias, dizziness, unsteady gait, seizure, mental status changes, bladder or bowel incontinence PSYCHIATRIC: Absent: anxiety, depression, suicidal or homicidal ideation, hallucinations. PHYSICAL EXAM: GENERAL: Awake, alert, and fully oriented, in acute distress writhing in pain HEAD: Normal with no signs of trauma. EYES: sclera anicteric, conjunctiva clear. NECK: Normal ROM, supple without lymphadenopathy, JVD, or masses. ABDOMEN: Soft, nontender, not distended, no guarding, no rebound, no masses. No organomegaly. No hernias; healed surgical port sites and scars. Psoas; Rovsings and obturator signs are absent. MUSCULOSKELETAL: Normal ROM at all joints. No bony deformities or tenderness. No CVA tenderness. UPPER EXTREMITIES: 2+ pulses, warm, well-perfused. No cyanosis. Cap refill <2 seconds. No peripheral edema. LOWER EXTREMITIES: 2+ pulses, warm, well-perfused. No calf tenderness. No peripheral edema. NEUROLOGICAL: Normal speech, gait not observed. PSYCH: Cooperative. Good eye contact. Appropriate mood and affect. SKIN: Warm, dry, normal turgor, no rashes or lesions noted. Vital Signs Temperature 97.8 F 05/06/18 03:56 Pulse Rate 70 05/06/18 03:56 Respiratory Rate 18 05/06/18 03:56 Blood Pressure 128/65 05/06/18 03:56 O2 Sat by Pulse Oximetry (%) 98 05/06/18 03:56 Lab Results WBC 6.0 K/mm3 (4.0-10.0) 05/05/18 17:06 RBC 4.74 M/mm3 (3.60-5.2) 05/05/18 17:06 Hgb 14.0 GM/dL (10.7-15.3) 05/05/18 17:06 Hct 39.5 % (32.4-45.2) 05/05/18 17:06 MCV 83.3 fl (80-96) 05/05/18 17:06 MCHC 35.5 g/dl (32.0-36.0) 05/05/18 17:06 RDW 13.0 % (11.6-15.6) 05/05/18 17:06 Plt Count 291 K/MM3 (134-434) 05/05/18 17:06 Sodium 138 mmol/L (136-145) 05/05/18 17:06 Potassium 4.3 mmol/L (3.5-5.1) 05/05/18 17:06 Chloride 106 mmol/L (98-107) 05/05/18 17:06 Carbon Dioxide 25 mmol/L (21-32) 05/05/18 17:06 Anion Gap 7 MMOL/L (8-16) L 05/05/18 17:06 BUN 11 mg/dL (7-18) 05/05/18 17:06 Creatinine 0.8 mg/dL (0.55-1.3) 05/05/18 17:06 Random Glucose 83 mg/dL (74-106) 05/05/18 17:06 Calcium 9.0 mg/dL (8.5-10.1) 05/05/18 17:06 Blood Type O POSITIVE 05/06/18 02:00 Antibody Screen Negative 05/06/18 02:00 INR 1.00 (0.83-1.09) 05/06/18 02:00 CT scan a/p reviewed IMP: doubt acute appendicitis based on hx. PE and imaging and hx. 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 Bry Taveras MD FACS
--- NOTE | 2018-05-06 11:29 | CON.OBG ---
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 She had previous laparoscopy x 5 and is scheduled for hysterectomy at [facility] on May 30. She took tylenol without much relief. She's 5 months and had paraguard copper IUD placed right after. Pelvic ultrasound was done and reviewed; there's no evidence of adnexa mass. Recent Travel: no PAST MEDICAL HISTORY: endometriosis, ovarian cysts (usually on the right), adenomyosis and asthma PAST SURGICAL HISTORY: Laparoscopy x5 and scheduled for hysterectomy (May 30 ) Social History: No past or present history of tobacco, alcohol or drug use. Family History: Allergies No Known Drug Allergies Allergy (Verified 05/05/18 15:41) beans Adverse Reaction (Severe, Uncoded 05/05/18 15:41) Swelling Anaphylactic-carries Epipen - History Source History Provided By: Patient Limitations to Obtaining History: No Limitations - Past Medical History ...LMP: 03/29/17 ...: No ...Para: 3 - Past Surgical History Additional Surgical History: Laparoscopy - Alcohol/Substance Use Hx Alcohol Use: No - Smoking History Smoking history: Never smoked Have you smoked in the past 12 months: No Aproximately how many cigarettes per day: 0 Home Medications - Allergies Allergies/Adverse Reactions: Allergies Allergy/AdvReac Type Severity Reaction Status Date / Time No Known Drug Allergies Allergy Verified 05/05/18 15:41 beans AdvReac Severe Swelling Uncoded 05/05/18 15:41 - Home Medications Home Medications: Ambulatory Orders Vit 108/Iron/Folic AC [ One Tablet] 1 each PO DAILY 05/06/17 Cephalexin Monohydrate [Keflex -] 500 mg PO BID #14 capsule 04/20/18 Elagolix Sodium [Orilissa] 150 mg PO BID #28 tablet 05/06/18 Family Disease History - Family Disease History Family History: Unremarkable Review of Systems - Review of Systems Constitutional: denies: Chills, Fever HENT: reports: No Symptoms Neck: reports: No Symptoms Cardiovascular: reports: No Symptoms Respiratory: denies: SOB Genitourinary: reports: Pain, Vaginal Bleeding Breasts: reports: No Symptoms Reported Musculoskeletal: reports: No Symptoms Neurological: reports: No Symptoms Endocrine: reports: No Symptoms Psychiatric: reports: No Symptoms Pain Intensity: 7 Physical 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 No: Enlarged Adnexa: Tender: Bilateral (Tendernes with or without palpation) Breast(s): Yes: WNL Musculoskeletal: Yes: WNL Extremities: Yes: WNL Neurological: Yes: Alert, Oriented ...Motor Strength: WNL Psychiatric: Yes: Alert, Oriented Labs: CBC, BMP 05/05/18 17:06 05/05/18 17:06 Assessment/Plan Pelvic pain Endometriosis Orilissa 150 mg PO Bid until Patient could have her scheduled surgery. Lupron may be given if Orilissa is not available. Continue pain medication
[2018-05-06] MEDS ORDERED: LEUPROLIDE ACETATE IM ONE (12:08)
[2018-05-06 12:40] LABS: INR 1.05 (0.83-1.09); PROTHROMBIN TIME (PATIENT) 12.4 SEC (9.7-13.0)
[2018-05-06 12:43] LABS: ACTIVATED PTT 28.2 SECONDS (25.2-36.5)
[2018-05-06 12:55] LABS: ALBUMIN 3.8 g/dl (3.4-5.0); ALK PHOS 116 U/L (45-117); ANION GAP 7 MMOL/L (8-16); BILIRUBIN,TOTAL 1.3 mg/dL (0.2-1); BLOOD UREA NITROGEN 12 mg/dL (7-18); CALCIUM 8.8 mg/dL (8.5-10.1); CHLORIDE 107 mmol/L (98-107); CO2 24 mmol/L (21-32); CREATININE 0.9 mg/dL (0.55-1.3); GLUCOSE,RANDOM 81 mg/dL (74-106); SGOT/AST 25 U/L (15-37); SGPT/ALT 82 U/L (13-61); SODIUM 138 mmol/L (136-145); TOT PROT 7.4 g/dl (6.4-8.2)
[2018-05-06 13:40] LABS: BASO % 0.2 % (0-2.0); EOS % 1.4 % (0-4.5); HEMATOCRIT 35.5 % (32.4-45.2); LYMPH % 23.7 % (8-40); MCH 30.4 pg (25.7-33.7); MCHC 36.6 g/dl (32.0-36.0); MEAN PLT VOLUME 8.3 fl (7.5-11.1); NEUT % 68.7 % (42.8-82.8); PLATELET COUNT 254 K/MM3 (134-434); RBC 4.28 M/mm3 (3.60-5.2); RDW 13.2 % (11.6-15.6); WHITE BLOOD COUNT 6.7 K/mm3 (4.0-10.0)
[2018-05-06 14:33] LABS: ERYTHROCYTE SEDIMENTATION RATE 18 mm/hr (0-20)
[2018-05-06] MEDS: HYDROmorphone HCl 2 MG/ML VIAL IVPB PRN ×2 (16:35→22:47)
[2018-05-07] MEDS: SODIUM CHLORIDE 1,000 ML IV SCH (01:04)
[2018-05-07] MEDS: ONDANSETRON 4 MG/2 ML VIAL IVPUSH PRN ×2 (05:51→10:11)
[2018-05-07 06:35] LABS: BASO % 0.3 % (0-2.0); EOS % 0.6 % (0-4.5); HEMATOCRIT 34.9 % (32.4-45.2); HEMOGLOBIN 12.5 GM/dL (10.7-15.3); LYMPH % 30.1 % (8-40); MCH 29.7 pg (25.7-33.7); MCHC 35.8 g/dl (32.0-36.0); MEAN CELL VOLUME 82.8 fl (80-96); MONO % 5.9 % (3.8-10.2); NEUT % 63.1 % (42.8-82.8); PLATELET COUNT 249 K/MM3 (134-434); RBC 4.21 M/mm3 (3.60-5.2); RDW 13.2 % (11.6-15.6); WHITE BLOOD COUNT 4.5 K/mm3 (4.0-10.0)
[2018-05-07 07:01] LABS: ALBUMIN 3.6 g/dl (3.4-5.0); ALK PHOS 113 U/L (45-117); ANION GAP 6 MMOL/L (8-16); BLOOD UREA NITROGEN 8 mg/dL (7-18); CALCIUM 8.4 mg/dL (8.5-10.1); CHLORIDE 106 mmol/L (98-107); CO2 25 mmol/L (21-32); CREATININE 0.7 mg/dL (0.55-1.3); GLUCOSE,RANDOM 90 mg/dL (74-106); SGOT/AST 18 U/L (15-37); SGPT/ALT 69 U/L (13-61); SODIUM 138 mmol/L (136-145); TOT PROT 7.1 g/dl (6.4-8.2)
--- NOTE | 2018-05-07 11:15 | CON.GI ---
Consult Consult Specialty:: GI Reason for Consultation:: r/o appendicitis - History of Present Illness Chief Complaint: 38 y.o. 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 CT scan showed a somewhat dilated appendix, no change from 2014 CT scan. No fever, no WBC. - Past Medical History ...LMP: 03/29/17 ...: No - Past Surgical History Additional Surgical History: Laparoscopy - Alcohol/Substance Use Hx Alcohol Use: No - Smoking History Smoking history: Never smoked Have you smoked in the past 12 months: No Aproximately how many cigarettes per day: 0 Home Medications - Allergies Allergies/Adverse Reactions: Allergies Allergy/AdvReac Type Severity Reaction Status Date / Time No Known Drug Allergies Allergy Verified 05/05/18 15:41 beans AdvReac Severe Swelling Uncoded 05/05/18 15:41 - Home Medications Home Medications: Ambulatory Orders Vit 108/Iron/Folic AC [ One Tablet] 1 each PO DAILY 05/06/17 Cephalexin Monohydrate [Keflex -] 500 mg PO BID #14 capsule 04/20/18 Elagolix Sodium [Orilissa] 150 mg PO BID #28 tablet 05/06/18 Physical Exam-GI Vital Signs: Vital Signs Temperature 98.7 F 05/07/18 06:38 Pulse Rate 72 05/07/18 06:38 Respiratory Rate 18 05/07/18 06:38 Blood Pressure 113/54 L 05/07/18 06:38 O2 Sat by Pulse Oximetry (%) 96 05/06/18 20:39 ...Rectal Exam: Yes: Deferred Labs: CBC, BMP 05/07/18 05:15 05/07/18 05:15 INR, PTT INR 1.05 (0.83-1.09) 05/06/18 11:30 Imaging - Results Cat Scan: Report Reviewed, Image Reviewed Problem List - Problems (1) Chronic pain Code(s): G89.29 - OTHER CHRONIC PAIN Assessment/Plan I agree with Dr Taveras's assessment that this is highly unlikely to be appendicitis. Indeed, the appendix is reported by the radiologist to be unchanged from 2014. I would suggest discontinuing antibiotics and initiating a diet.
--- NOTE | 2018-05-07 11:40 | PN ---
Progress Note (short form) - Note Progress Note: Attending Surgeon Seen in f/u; no acute complaints today VSS AF abdo-no evidence of an acute surgical abdomen IMP: w/o evidence of a general surgery issue PLAN: Reconsult prn; SUPERVISOR OF OFFICIALS f/u start diet and advance as tolerated. Bry Taveras MD FACS
--- NOTE | 2018-05-07 12:23 | PN ---
Progress Note, Physician - Current Medication List Current Medications: Active Medications Docusate Sodium (Colace -) 300 mg PO DAILY [facility] Hydromorphone HCl (Dilaudid Vial -) 2 mg IVPB Q4H PRN PRN Reason: PAIN LEVEL 6-10 Last Admin: 05/06/18 22:47 Dose: 2 mg Sodium Chloride (Normal Saline -) 1,000 mls @ 75 mls/hr IV ASDIR FERNANDO Last Admin: 05/07/18 01:04 Dose: 75 mls/hr Leuprolide Acetate (Lupron Depot 11.25mg -) 11.25 mg IM ONCE ONE Stop: 05/06/18 12:09 Ondansetron HCl (Zofran Injection) 4 mg IVPUSH Q4H PRN PRN Reason: NAUSEA AND/OR VOMITING Last Admin: 05/07/18 10:11 Dose: 4 mg Polyethylene Glycol (Miralax (For Daily Use) -) 17 gm PO DAILY FERNANDO - Objective Vital Signs: Vital Signs Temperature 98.7 F 05/07/18 06:38 Pulse Rate 72 05/07/18 06:38 Respiratory Rate 18 05/07/18 06:38 Blood Pressure 113/54 L 05/07/18 06:38 O2 Sat by Pulse Oximetry (%) 96 05/06/18 20:39 Cardiovascular: Yes: Regular Rate and Rhythm Respiratory: Yes: Regular, CTA Bilaterally Gastrointestinal: Yes: Normal Bowel Sounds, Soft, Tenderness (LESS) Labs: CBC, BMP 05/07/18 05:15 05/07/18 05:15 INR, PTT INR 1.05 (0.83-1.09) 05/06/18 11:30 Problem List - Problems (1) Appendicitis Assessment/Plan: -REPORTED ON CT -SURGICAL CONSULT NOTED--NO INTERVENTION -NPO--CLEAR -IVF -PAIN MEDS Code(s): K37 - UNSPECIFIED APPENDICITIS (2) Lower abdominal pain Assessment/Plan: - ABOVE -GI AND ID CONSULTS -FOLLOW LABS Code(s): R10.30 - LOWER ABDOMINAL PAIN, UNSPECIFIED (3) Endometriosis Assessment/Plan: -MANAGER MENTAL HEALTH CONSULT Code(s): N80.9 - ENDOMETRIOSIS, UNSPECIFIED
[2018-05-07] MEDS: HYDROmorphone HCl 2 MG/ML VIAL IVPB PRN (21:55)
[2018-05-08] MEDS: ONDANSETRON 4 MG/2 ML VIAL IVPUSH PRN ×4 (00:02→21:43)
[2018-05-08] MEDS: HYDROmorphone HCl 2 MG/ML VIAL IVPB PRN ×4 (02:26→23:52)
[2018-05-08] MEDS: SODIUM CHLORIDE 1,000 ML IV SCH ×3 (03:14→21:43)
[2018-05-08] MEDS ORDERED: diphenhydrAMINE HCL 25 MG CAPSULE (FP) PO PRN (03:19)
[2018-05-08] MEDS: POLYETHYLENE GLYCOL 3350 119 GM BTL PO SCH ×3 (09:59→20:15)
[2018-05-08] MEDS: DOCUSATE SODIUM 100 MG CAPSULE (FP) PO SCH ×3 (09:59→20:15)
--- NOTE | 2018-05-08 14:44 | PN ---
Progress Note, Physician Chief Complaint: Abdominal pain Vaginal bleeding History of Present Illness: Previous notes and events reviewed awake and alert NAD states abdominal pain is improving - Current Medication List Current Medications: Active Medications Diphenhydramine HCl (Benadryl -) 25 mg PO Q6H PRN PRN Reason: FOR ITCHING Last Admin: 05/08/18 03:26 Dose: 25 mg Docusate Sodium (Colace -) 300 mg PO DAILY [facility] Last Admin: 05/08/18 10:56 Dose: Not Given Hydromorphone HCl (Dilaudid Vial -) 2 mg IVPB Q4H PRN PRN Reason: PAIN LEVEL 6-10 Last Admin: 05/08/18 11:53 Dose: 2 mg Sodium Chloride (Normal Saline -) 1,000 mls @ 75 mls/hr IV ASDIR FERNANDO Last Admin: 05/08/18 10:00 Dose: 75 mls/hr Leuprolide Acetate (Lupron Depot 11.25mg -) 11.25 mg IM ONCE ONE Stop: 05/06/18 12:09 Ondansetron HCl (Zofran Injection) 4 mg IVPUSH Q4H PRN PRN Reason: NAUSEA AND/OR VOMITING Last Admin: 05/08/18 11:53 Dose: 4 mg Polyethylene Glycol (Miralax (For Daily Use) -) 17 gm PO DAILY [facility] Last Admin: 05/08/18 10:56 Dose: Not Given - Objective Vital Signs: Vital Signs Temperature 98.6 F 05/08/18 13:48 Pulse Rate 64 05/08/18 13:48 Respiratory Rate 20 05/08/18 13:48 Blood Pressure 110/65 05/08/18 13:48 O2 Sat by Pulse Oximetry (%) 99 05/08/18 09:00 Constitutional: Yes: No Distress, Calm Eyes: Yes: Conjunctiva Clear HENT: Yes: Atraumatic Cardiovascular: Yes: Regular Rate and Rhythm Respiratory: Yes: Regular, CTA Bilaterally Gastrointestinal: Yes: Normal Bowel Sounds, Soft, Tenderness Musculoskeletal: Yes: WNL Extremities: Yes: WNL Edema: No Neurological: Yes: Alert, Oriented Psychiatric: Yes: Alert, Oriented Labs: CBC, BMP 05/07/18 05:15 05/07/18 05:15 INR, PTT INR 1.05 (0.83-1.09) 03/09/19 11:30 Problem List - Problems (1) Appendicitis Assessment/Plan: -Abd/Pelvic CT scan reviewed -GI and surgery on board -tolerating clear liquid diet Code(s): K37 - UNSPECIFIED APPENDICITIS (2) Lower abdominal pain Assessment/Plan: -Abd/Pelvic CT scan show IUD malpositioned -FOAM RUBBER MIXER on board -continue with pain management Code(s): R10.30 - LOWER ABDOMINAL PAIN, UNSPECIFIED (3) Endometriosis Assessment/Plan: -FOAM RUBBER MIXER on board -Lupron x 1 dose Code(s): N80.9 - ENDOMETRIOSIS, UNSPECIFIED Assessment/Plan see problem list dvt ppx
[2018-05-09] MEDS: SODIUM CHLORIDE 1,000 ML IV SCH ×2 (01:34→13:16)
[2018-05-09] MEDS: HYDROmorphone HCl 2 MG/ML VIAL IVPB PRN ×3 (05:38→17:03)
[2018-05-09] MEDS: ONDANSETRON 4 MG/2 ML VIAL IVPUSH PRN ×3 (05:38→17:01)
[2018-05-09 07:19] LABS: HEMATOCRIT 32.9 % (32.4-45.2); MCHC 36.4 g/dl (32.0-36.0); MEAN CELL VOLUME 82.5 fl (80-96); MEAN PLT VOLUME 7.7 fl (7.5-11.1); PLATELET COUNT 250 K/MM3 (134-434); RBC 3.99 M/mm3 (3.60-5.2); RDW 13.2 % (11.6-15.6); WHITE BLOOD COUNT 4.3 K/mm3 (4.0-10.0)
[2018-05-09 07:58] LABS: ALBUMIN 3.2 g/dl (3.4-5.0); ALK PHOS 89 U/L (45-117); ANION GAP 7 MMOL/L (8-16); BILIRUBIN,TOTAL 0.7 mg/dL (0.2-1); BLOOD UREA NITROGEN 6 mg/dL (7-18); CALCIUM 7.8 mg/dL (8.5-10.1); CHLORIDE 107 mmol/L (98-107); CO2 27 mmol/L (21-32); CREATININE 0.7 mg/dL (0.55-1.3); GLUCOSE,RANDOM 90 mg/dL (74-106); POTASSIUM 3.7 mmol/L (3.5-5.1); SGOT/AST 13 U/L (15-37); SGPT/ALT 44 U/L (13-61); SODIUM 140 mmol/L (136-145); TOT PROT 6.6 g/dl (6.4-8.2)
[2018-05-09] MEDS: DOCUSATE SODIUM 100 MG CAPSULE (FP) PO SCH (09:36)
[2018-05-09] MEDS: POLYETHYLENE GLYCOL 3350 119 GM BTL PO SCH (10:09)
--- NOTE | 2018-05-09 12:23 | DS ---
Physical Examination Vital Signs: Vital Signs Temperature 98.8 F 05/09/18 04:00 Pulse Rate 79 05/09/18 04:00 Respiratory Rate 20 05/09/18 04:00 Blood Pressure 126/78 05/09/18 04:00 O2 Sat by Pulse Oximetry (%) 99 05/08/18 21:00 Findings/Remarks: 38-year-old woman c/o vaginal bleeding- intermittent since beginning of March , associated with suprapubic pain, sharp in nature. She took tylenol without much relief. She is 5 months and had paraguard copper IUD placed right after. CT of abdomen and pelvis in ER suspicious for acute appendicitis. Dr. Taveras was contacted and aware. Constitutional: Yes: Well Nourished, No Distress, Calm Cardiovascular: Yes: Regular Rate and Rhythm Respiratory: Yes: Regular Gastrointestinal: Yes: Normal Bowel Sounds, Soft Musculoskeletal: Yes: WNL Extremities: Yes: WNL Edema: No Peripheral Pulses WNL: Yes Neurological: Yes: Alert, Oriented Psychiatric: Yes: Alert, Oriented Labs: CBC, BMP 05/09/18 06:25 05/09/18 06:25 Discharge Summary Reason For Visit: APPENDICTIS Current Active Problems Appendicitis (Acute) Lower abdominal pain (Acute) Hospital Course: Laboratory Last Values WBC 4.3 K/mm3 (4.0-10.0) 05/09/18 06:25 RBC 3.99 M/mm3 (3.60-5.2) 05/09/18 06:25 Hgb 12.0 GM/dL (10.7-15.3) 05/09/18 06:25 Hct 32.9 % (32.4-45.2) 05/09/18 06:25 MCV 82.5 fl (80-96) 05/09/18 06:25 MCH 30.0 pg (25.7-33.7) 05/09/18 06:25 MCHC 36.4 g/dl (32.0-36.0) H 05/09/18 06:25 RDW 13.2 % (11.6-15.6) 05/09/18 06:25 Plt Count 250 K/MM3 (134-434) 05/09/18 06:25 MPV 7.7 fl (7.5-11.1) 05/09/18 06:25 Absolute Neuts (auto) 2.9 K/mm3 (1.5-8.0) 05/07/18 05:15 Neutrophils % 63.1 % (42.8-82.8) 05/07/18 05:15 Lymphocytes % 30.1 % (8-40) D 05/07/18 05:15 Monocytes % 5.9 % (3.8-10.2) 05/07/18 05:15 Eosinophils % 0.6 % (0-4.5) 05/07/18 05:15 Basophils % 0.3 % (0-2.0) 05/07/18 05:15 Nucleated RBC % 0 % (0-0) 05/07/18 05:15 ESR 18 mm/hr (0-20) 05/06/18 11:30 PT with INR 12.40 SEC (9.7-13.0) 05/06/18 11:30 INR 1.05 (0.83-1.09) 05/06/18 11:30 PTT (Actin FS) 28.2 SECONDS (25.2-36.5) 05/06/18 11:30 Sodium 140 mmol/L (136-145) 05/09/18 06:25 Potassium 3.7 mmol/L (3.5-5.1) 05/09/18 06:25 Chloride 107 mmol/L (98-107) 05/09/18 06:25 Carbon Dioxide 27 mmol/L (21-32) 05/09/18 06:25 Anion Gap 7 MMOL/L (8-16) L 05/09/18 06:25 BUN 6 mg/dL (7-18) L 05/09/18 06:25 Creatinine 0.7 mg/dL (0.55-1.3) 05/09/18 06:25 Creat Clearance w eGFR > 60 (>60) 05/09/18 06:25 Random Glucose 90 mg/dL (74-106) 05/09/18 06:25 Calcium 7.8 mg/dL (8.5-10.1) L 05/09/18 06:25 Total Bilirubin 0.7 mg/dL (0.2-1) 05/09/18 06:25 AST 13 U/L (15-37) L 05/09/18 06:25 ALT 44 U/L (13-61) 05/09/18 06:25 Alkaline Phosphatase 89 U/L (45-117) 05/09/18 06:25 C-Reactive Protein 1.3 MG/DL (0.00-0.3) H 05/06/18 11:00 Total Protein 6.6 g/dl (6.4-8.2) 05/09/18 06:25 Albumin 3.2 g/dl (3.4-5.0) L 05/09/18 06:25 Urine Color Yellow 05/06/18 04:00 Urine Appearance Slcloudy 05/06/18 04:00 Urine pH 5.0 (5.0-8.0) 05/06/18 04:00 Ur Specific [place] 1.031 (1.010-1.035) 05/06/18 04:00 Urine Protein 1+ (NEGATIVE) H 05/06/18 04:00 Urine Glucose (UA) Negative (NEGATIVE) 05/06/18 04:00 Urine Ketones Negative (NEGATIVE) 05/06/18 04:00 Urine Blood 3+ (NEGATIVE) H 05/06/18 04:00 Urine Nitrite Negative (NEGATIVE) 05/06/18 04:00 Urine Bilirubin Negative (<2.0 mg/dL) 05/06/18 04:00 Urine Urobilinogen Negative mg/dL (0.2-1.0) 05/06/18 04:00 Ur Leukocyte Esterase Negative (NEGATIVE) 05/06/18 04:00 Urine WBC (Auto) 147 /hpf (3-5) 05/06/18 04:00 Urine RBC (Auto) 260 /hpf (0-3) 05/06/18 04:00 Ur Epithelial Cells Rare /HPF (FEW) 05/06/18 04:00 Urine Mucus Rare 05/06/18 04:00 Urine HCG, Qual Negative 05/06/18 04:00 Blood Type O POSITIVE 05/06/18 11:30 Antibody Screen Negative 05/06/18 11:30 Vital Signs Temp 98.8 F 05/09/18 04:00 Pulse 79 05/09/18 04:00 Resp 20 05/09/18 04:00 BP 126/78 05/09/18 04:00 Pulse Ox 99 05/08/18 21:00 Intake & Output 05/08/18 05/09/18 05/09/18 23:59 11:59 23:59 Intake Total 2450 825 Balance 2450 825 Intake: IV 900 525 Normal Saline - 1,000 ml 900 525 @ 75 mls/hr IV ASDIR FERNANDO Rx#:[id number] IVPB 200 Oral 1350 300 Other: Voiding Method Toilet Toilet # Unmeasured Voids Void 2 Bowel Movement No Condition: Stable - Instructions Referrals: Giselle Lynch [Primary Care Provider] - Disposition: HOME - Home Medications Comprehensive Discharge Medication List: Ambulatory Orders Vit 108/Iron/Folic AC [ One Tablet] 1 each PO DAILY 05/06/17 Cephalexin Monohydrate [Keflex -] 500 mg PO BID #14 capsule 04/20/18 Elagolix Sodium [Orilissa] 150 mg PO BID #28 tablet 05/06/18
--- NOTE | 2018-05-09 15:38 | PN ---
GI Progress Note Subjective: Continued pelvic pain Being evaluated by skelp processor Describes some dysphagia episodes as outpatient - Objective Vital Signs: Vital Signs Temperature 98.2 F 05/09/18 14:22 Pulse Rate 66 05/09/18 14:22 Respiratory Rate 20 05/09/18 14:22 Blood Pressure 110/66 05/09/18 14:22 O2 Sat by Pulse Oximetry (%) 97 05/09/18 09:00 Constitutional: Calm Eyes: No: Sclera Icterus Cardiovascular: Yes: Regular Rate and Rhythm Respiratory: Yes: CTA Bilaterally Gastrointestinal Inspection: Yes: Scars (decorative umbilical ring scar). No: Distention ...Auscultate: Yes: Normoactive Bowel Sounds ...Palpate: Yes: Tenderness (suprapubic tenderness to palpation). No: Guarding ...Percussion: No: Tympanitic Edema: No (No LE edema) Neurological: Yes: Alert Labs: CBC, BMP 05/09/18 06:25 05/09/18 06:25 INR, PTT INR 1.05 (0.83-1.09) 05/06/18 11:30 Problem List - Problems (1) Pelvic pain Assessment/Plan: With worsening ASSISTANT DIRECTOR OF ADMISSIONS symptomatology and ? malpositioned IUD Does not appear to have clinical appendicitis Electrical And Electronic Assembler follow-up Advised office follow-up for further evaluation of her Eosinophilic Esophagitis. Restarted protonix 20mg once daily Code(s): R10.2 - PELVIC AND PERINEAL PAIN
[2018-05-09] MEDS: PANTOPRAZOLE 20 MG TABLET (FP) PO SCH (16:13)
[2018-05-09] MEDS ORDERED: oxyCODONE HCL 5 MG TABLET PO PRN (17:49)
[2018-05-09] MEDS ORDERED: ACETAMINOPHEN 325 MG TABLET (FP) PO PRN (17:50)
[2018-05-09] MEDS: oxyCODONE HCL 5 MG TABLET PO PRN (20:50)
[2018-05-10] MEDS: oxyCODONE HCL 5 MG TABLET PO PRN ×2 (02:02→14:04)
[2018-05-10] MEDS: DOCUSATE SODIUM 100 MG CAPSULE (FP) PO SCH (10:47)
[2018-05-10] MEDS: SODIUM CHLORIDE 1,000 ML IV SCH (10:48)
[2018-05-10] MEDS: PANTOPRAZOLE 20 MG TABLET (FP) PO SCH (10:48)
[2018-05-10] MEDS: POLYETHYLENE GLYCOL 3350 119 GM BTL PO SCH (10:48)
--- NOTE | 2018-05-10 11:02 | PN ---
Progress Note, Physician Chief Complaint: Abdominal pain Displaced IUD History of Present Illness: c/o pain tried getting in touch with Dr Reinoso with no return call pain uncontrolled even on dilaudid Seen by GI and surgery - Current Medication List Current Medications: Active Medications Acetaminophen (Tylenol -) 650 mg PO Q4H PRN PRN Reason: PAIN LEVEL 1 - 3 Diphenhydramine HCl (Benadryl -) 25 mg PO Q6H PRN PRN Reason: FOR ITCHING Last Admin: 05/08/18 03:26 Dose: 25 mg Docusate Sodium (Colace -) 300 mg PO DAILY [facility] Last Admin: 05/09/18 09:36 Dose: 300 mg Sodium Chloride (Normal Saline -) 1,000 mls @ 75 mls/hr IV ASDIR [facility] Last Admin: 05/09/18 13:16 Dose: 75 mls/hr Ondansetron HCl (Zofran Injection) 4 mg IVPUSH Q4H PRN PRN Reason: NAUSEA AND/OR VOMITING Last Admin: 05/09/18 17:01 Dose: 4 mg Oxycodone HCl (Roxicodone -) 5 mg PO Q4H PRN PRN Reason: PAIN LEVEL 4 - 6 Oxycodone HCl (Roxicodone -) 10 mg PO Q4H PRN PRN Reason: PAIN LEVEL 7 - 10 Last Admin: 05/10/18 02:02 Dose: 10 mg Pantoprazole Sodium (Protonix -) 20 mg PO DAILY [facility] Last Admin: 05/09/18 16:13 Dose: 20 mg Polyethylene Glycol (Miralax (For Daily Use) -) 17 gm PO DAILY [facility] Last Admin: 05/09/18 10:09 Dose: 17 gm - Objective Vital Signs: Vital Signs Temperature 98.5 F 05/10/18 05:56 Pulse Rate 68 05/10/18 05:56 Respiratory Rate 20 05/10/18 05:56 Blood Pressure 120/69 05/10/18 05:56 O2 Sat by Pulse Oximetry (%) 97 05/09/18 21:00 Constitutional: Yes: Well Nourished, No Distress, Calm Cardiovascular: Yes: Regular Rate and Rhythm Respiratory: Yes: Regular Gastrointestinal: Yes: Tenderness (RLQ,LLQ) Genitourinary: Yes: WNL Musculoskeletal: Yes: WNL Extremities: Yes: WNL Edema: No Peripheral Pulses WNL: Yes Neurological: Yes: Alert, Oriented Psychiatric: Yes: Alert, Oriented Labs: CBC, BMP 05/09/18 06:25 05/09/18 06:25 INR, PTT INR 1.05 (0.83-1.09) 05/06/18 11:30 Problem List - Problems (1) Displacement of intrauterine contraceptive device Assessment/Plan: -Seen by Surgery and GI -Seen by ACID SUPERVISOR, recommeded f/u outpatient -Pain uncontrolled on dilaudid and oxycodone -failed attempt to touch base with ACID SUPERVISOR again -2nd tax accounting manager consult for Dr Khanna Code(s): T83.32XA - DISPLACEMENT OF INTRAUTERINE CONTRACEPTIVE DEVICE, INIT (2) Lower abdominal pain Code(s): R10.30 - LOWER ABDOMINAL PAIN, UNSPECIFIED Assessment/Plan see problem list Self ambulatory d/c home once IUD is removed
[2018-05-10 15:21] VITALS: BP 111/66; PULSE 63; TEMP 98.6
== END 2018-05-10 17:00 | disposition home or self-care (01) | DRG 761 ==
LOC: JER 15:34 → JERBED 05-06 00:28 → J7W 05-06 03:42
PROVIDERS: ADMIT Internal Medicine; ATTEND Family Medicine
DX: T83.32XA Displacement of intrauterine contraceptive device, initial encounter (principal); N80.9 Endometriosis, unspecified; N93.9 Abnormal uterine and vaginal bleeding, unspecified; N83.291 Other ovarian cyst, right side; K37 Unspecified appendicitis; G89.29 Other chronic pain; D25.9 Leiomyoma of uterus, unspecified; J45.909 Unspecified asthma, uncomplicated; Y83.9 Surgical procedure, unspecified as the cause of abnormal reaction of the patient, or of later complication, without mention of misadventure at the time of the procedure; R10.30 Lower abdominal pain, unspecified; R13.10 Dysphagia, unspecified
CPT/HCPCS: 36415; 74177-TC; 76830-TC; 80048; 80053; 81003; 81015; 84703; 85025; 85027; 85610; 85651; 85730; 86140; 86850; 86900; 86901; 99283-25; J7030

== ENCOUNTER 2018-06-10 11:54 | Emergency (ER) | payer OTHER ==
[2018-06-10 12:05] VITALS: BP 112/76; PULSE 102; TEMP 98; BMI 33.0
[2018-06-10] MEDS ORDERED: DEXAMETHASONE LIQUID 0.5 MG/5 ML 240 ML BULK BOTTLE PO ONE (12:46)
--- NOTE | 2018-06-10 12:46 | PDOC ---
History of Present Illness - General Chief Complaint: Rash Stated Complaint: HIVES / BODY RASH Time Seen by Provider: 06/10/18 12:18 History Source: Patient Exam Limitations: No Limitations Past History - Travel Traveled outside of the country in the last 30 days: No Close contact w/someone who was outside of country & ill: No - Past Medical History Allergies/Adverse Reactions: Allergies Allergy/AdvReac Type Severity Reaction Status Date / Time No Known Drug Allergies Allergy Verified 06/10/18 12:02 beans AdvReac Severe Swelling Uncoded 06/10/18 12:02 Home Medications: Ambulatory Orders Clobetasol Propionate [Temovate] 1 applic TP BID #60 grams 06/10/18 Diphenhydramine [Benadryl -] 50 mg PO QID PRN 06/10/18 Methylprednisolone [Medrol Dose Ankit] 4 mg PO ASDIR #21 tablet 06/10/18 Anemia: No Asthma: Yes Cancer: No Cardiac Disorders: No CVA: No COPD: No CHF: No Dementia: No Diabetes: No GI Disorders: No Disorders: Yes (endometriosis) HTN: No Hypercholesterolemia: No Liver Disease: No Seizures: No Thyroid Disease: No Other medical history: ovarian cysts - Surgical History Abdominal Surgery: Yes (laparoscopy X5) Appendectomy: Yes Cardiac Surgery: No Cholecystectomy: No Lung Surgery: No Neurologic Surgery: No Orthopedic Surgery: No - Reproductive History (#): 6 Para: 2 Cervical CA: No Ectopic : No Polycystic Ovaries: Yes Therapeutic (s) & number: Yes (1) Tubal Ligation: No Spontaneous : 1 - Immunization History Td Vaccination: No Immunization Up to Date: Yes - Suicide/Smoking/Psychosocial Hx Smoking Status: No Smoking History: Never smoked Have you smoked in the past 12 months: No Number of Cigarettes Smoked Daily: 0 Hx Alcohol Use: No Drug/Substance Use Hx: No Substance Use Type: None Hx Substance Use Treatment: No Review of Systems - Review of Systems Able to Perform ROS?: Yes Comments:: 06/10/18 14:06 CONSTITUTIONAL: Absent: fever, chills, diaphoresis, generalized weakness, malaise, loss of appetite GASTROINTESTINAL: Absent: abdominal pain, abdominal distension, nausea, vomiting, diarrhea, constipation, melena, hematochezia MUSCULOSKELETAL: Absent: myalgia, arthralgia, joint swelling SKIN: Present: rash, itching Absent: pallor NEUROLOGIC: Absent: headache, focal weakness or paresthesias, dizziness, unsteady gait, seizure, mental status changes, bladder or bowel incontinence PSYCHIATRIC: Absent: anxiety, depression, suicidal or homicidal ideation, hallucinations. *Physical Exam - Vital Signs Last Vital Signs Temp Pulse Resp BP Pulse Ox 98.0 F 102 H 18 112/76 99 06/10/18 12:02 06/10/18 12:02 06/10/18 12:02 06/10/18 12:02 06/10/18 12:02 - Physical Exam Comments: 06/10/18 14:07 GENERAL: The patient is awake, alert, and fully oriented, in no acute distress. HEAD: Normal with no signs of trauma. EYES: Pupils equal, round and reactive to light, extraocular movements intact, sclera anicteric, conjunctiva clear. EXTREMITIES: Normal range of motion, no edema. NEUROLOGICAL: Normal speech, normal gait. PSYCH: Normal mood, normal affect. SKIN: Diffuse uticaria to the entire body sparing the hands, feet, scalp and face. Warm, Dry, normal turgor. Medical Decision Making - Medical Decision Making 06/10/18 14:09 HPI:the patient is a 38-year-old female with past medical history of hysterectomy, appendectomy, presents to the ER for a rash. She states the rash started 3 days ago. She noticed a hive on her left upper thigh. She states that soon after the rash started spreading down her legs. She called her primary care doctor who suggested it may be allergic dermatitis and told her to take Benadryl. She states that since in the rash has spread to her entire body. Denies difficulty breathing, shortness of breath, nausea, vomiting, throat swelling. A/P: Urticaria Patient with diffuse urticaria over the entire body sparing hands and feet and face. we will give Decadron at this time and start on systemic steroids Continue Benadryl 50 mg 4 times a day until rash subsides. Clobetasol prescribed. Discharge home with strict return precautions and dermatology follow-up. I discussed the physical exam findings, ancillary test results and final diagnoses with the patient. I answered all of the patient's questions. The patient was satisfied with the care received and felt comfortable with the discharge plan and treatment plan. The Patient agrees to follow up with the primary care physician/specialist within 24-72 hours. Return precautions were given. *DC/Admit/Observation/Transfer Diagnosis at time of Disposition: Hives - Discharge Dispostion Disposition: HOME Condition at time of disposition: Stable Decision to Admit order: No - Prescriptions Prescriptions: Clobetasol Propionate [Temovate] 1 applic TP BID #60 grams Methylprednisolone [Medrol Dose Ankit] 4 mg PO ASDIR #21 tablet - Referrals Referrals: Giselle Lynch [Primary Care Provider] - Stefania Carrillo MD [Staff Physician] - - Patient Instructions Printed Discharge Instructions: DI for Hives Additional Instructions: You were evaluated for your hives today. Please take the Medrol Dosepak as prescribed. Start this medication tomorrow as you were given your first dose of steroids today. Continue to take Benadryl as previously prescribed until your symptoms resolve You may use the clobetasol cream twice a day to affected areas. Do not use this cream on your face and groin were breast area. Please follow-up with your primary care doctor and dermatology. Referrals have been provided. Return to the ER for worsening itching despite medication, difficulty breathing , shortness of breath or if you have any changes in your symptoms. - Post Discharge Activity
[2018-06-10] MEDS ORDERED: DEXAMETHASONE SOD PHOSPHATE 10 MG/1 ML VIAL ONE (12:59)
== END 2018-06-10 13:09 | disposition home or self-care (01) ==
LOC: JERFT 11:54
DX: L50.8 Other urticaria (principal)
CPT/HCPCS: 99281-25

== ENCOUNTER 2019-11-30 14:40 | Emergency (ER) | payer OTHER ==
[2019-11-30 14:55] VITALS: TEMP 98.4; BMI 38.0
--- NOTE | 2019-11-30 15:25 | PDOC ---
History of Present Illness <AdileneDonya - Last Filed: 11/30/19 15:55> <Rani Colón - Last Filed: 12/08/19 12:30> - General Chief Complaint: Chest Pain Stated Complaint: Chest Pain Time Seen by Provider: 11/30/19 14:59 Past History - Medical History Anemia: No Asthma: Yes Cancer: No Cardiac Disorders: No CVA: No COPD: No CHF: No Dementia: No Diabetes: No GI Disorders: No Disorders: Yes (endometriosis) HTN: No Hypercholesterolemia: No Liver Disease: No Seizures: No Thyroid Disease: No - Surgical History Abdominal Surgery: Yes (laparoscopy X5) Appendectomy: Yes Cardiac Surgery: No Cholecystectomy: No Lung Surgery: No Neurologic Surgery: No Orthopedic Surgery: No - Reproductive History Is Patient Now?: No (#): 6 Para: 2 Cervical CA: No Ectopic : No Polycystic Ovaries: Yes Therapeutic (s) & number: Yes (1) Tubal Ligation: No Spontaneous : 1 - Immunization History Td Vaccination: No Immunization Up to Date: Yes - Psycho-Social/Smoking History Smoking Status: No Smoking History: Never smoked Have you smoked in the past 12 months: No Number of Cigarettes Smoked Daily: 0 - Substance Abuse Hx (Audit-C & DAST Scrn) How often the patient has a drink containing alcohol: Never Score: In Men: 4 or > Positive; In Women: 3 or > Positive: 0 Screen Result (Pos requires Nsg. Audit-10AR): Negative In the last yr the pt used illegal drug/Rx for NonMed reason: No Score: Yes response is considered Positive: 0 Screen Result (Positive result requires Nsg. DAST-10): Negative <[place]Donya - Last Filed: 11/30/19 15:55> <Rani Colón - Last Filed: 12/08/19 12:30> - Medical History Allergies/Adverse Reactions: Allergies Allergy/AdvReac Type Severity Reaction Status Date / Time No Known Drug Allergies Allergy Verified 11/30/19 14:49 beans AdvReac Severe Swelling Uncoded 11/30/19 14:49 Home Medications: Ambulatory Orders Clobetasol Propionate [Temovate] 1 applic TP BID #60 grams 06/10/18 Diphenhydramine [Benadryl -] 50 mg PO QID PRN 06/10/18 Methylprednisolone [Medrol Dose Ankit] 4 mg PO ASDIR #21 tablet 06/10/18 Famotidine [Pepcid] 20 mg PO BID #28 tablet 11/30/19 Mag Hydrox/Al Hydrox/Simeth [Mylanta Suspension -] 30 ml PO Q6H #1 bottle 11/30/19 Cardiac Specific PMH - Complaint Specific PMHX GERD: No Pacemaker: No <Donya Head - Last Filed: 11/30/19 15:55> *Physical Exam - Vital Signs Last Vital Signs Temp Pulse Resp BP Pulse Ox 98.4 F 82 16 120/75 99 11/30/19 14:50 11/30/19 16:12 11/30/19 16:12 11/30/19 16:12 11/30/19 16:12 Medical Decision Making <Donya Head - Last Filed: 11/30/19 15:55> - Medical Decision Making 11/30/19 15:23 39 yo morbidly obesed female, here w/ chest discomfort and n/v. Patient states this a.m. she woke up with an "acidic taste" in her mouth, and at some point started having some vague chest discomfort and threw up to 3 times. Symptoms since improved. Patient states 3 years ago she had an endoscopy done for vague GI symptoms and was told her esophagus was "swollen". Was treated with omeprazole at the time and states symptoms resolved. No change in bowel movements now and no melena, bright red blood per rectum, fever or chills. Not currently on any medications. Patient states she is currently being worked up for possible obstructive sleep apnea and was seen by her ENT this a.m. who referred her to ER for chest x-ray for unclear reasons. see exam Possible gastritis/GERD given hx Sxs since resolved Exam unremarkable EKG and CXR normal Dc w/ reassurance and GI f/u (Donya Head) Discharge - Discharge Information Problems reviewed: Yes <Donya Head - Last Filed: 11/30/19 15:55> - Discharge Information Problems reviewed: Yes <Rani Colón - Last Filed: 12/08/19 12:30> - Discharge Information Clinical Impression/Diagnosis: Nausea and vomiting Qualifiers: Vomiting type: unspecified Vomiting Intractability: non-intractable Qualified Code(s): R11.2 - Nausea with vomiting, unspecified Condition: Improved Disposition: HOME - Additional Discharge Information Prescriptions: Mag Hydrox/Al Hydrox/Simeth [Mylanta Suspension -] 30 ml PO Q6H #1 bottle Famotidine [Pepcid] 20 mg PO BID #28 tablet - Patient Discharge Instructions Additional Instructions: The cause of your symptoms might be GI related as your chest x-ray and EKG were normal Please follow-up with your consumer advocate if symptoms recur We did send Pepcid to your pharmacy, take as directed
[2019-11-30 16:13] VITALS: BP 120/75; PULSE 82
--- NOTE | 2019-12-03 17:05 | EKG ---
Test Reason : Blood Pressure : / mmHG Vent. Rate : 070 BPM Atrial Rate : 070 BPM P-R Int : 148 ms QRS Dur : 086 ms QT Int : 388 ms P-R-T Axes : 026 027 032 degrees QTc Int : 419 ms NORMAL SINUS RHYTHM NORMAL ECG NO PREVIOUS ECGS AVAILABLE Confirmed by CHRISTIANO WOODALL MD ([id number]) on 12/03/2019 5:04:40 PM Referred By: Confirmed By:CHRISTIANO WOODALL MD
== END 2019-11-30 16:16 | disposition home or self-care (01) ==
LOC: JER 14:40
DX: R11.2 Nausea with vomiting, unspecified (principal)
CPT/HCPCS: 71046-TC-FY; 93005; 93010; 99284-25

== ENCOUNTER 2020-04-17 04:27 | Day surgery (SDC) | payer OTHER ==
[2020-04-15 15:32] VITALS: BMI 38.9
[2020-04-17 09:50] VITALS: TEMP 97.9
[2020-04-17 12:10] VITALS: BP 138/68; PULSE 76
== END 2020-04-17 11:50 | disposition home or self-care (01) ==
LOC: JASU-ENDO 04:27
PROVIDERS: ATTEND Internal Medicine Gastroenterology
PROC: 0DBN8ZX Excision of Sigmoid Colon, Via Natural or Artificial Opening Endoscopic, Diagnostic (ICD-10-PCS; 2020-04-17)
PROC: 0DBN8ZX Excision of Sigmoid Colon, Via Natural or Artificial Opening Endoscopic, Diagnostic (ICD-10-PCS; principal; 2020-04-17 10:13)
DX: D12.7 Benign neoplasm of rectosigmoid junction (principal); D12.5 Benign neoplasm of sigmoid colon; K64.8 Other hemorrhoids
CPT/HCPCS: 81025; 88305-TC

== ENCOUNTER 2020-04-24 04:37 | Day surgery (SDC) | payer OTHER ==
[2020-04-22 15:06] VITALS: BMI 39.0
[2020-04-24 11:20] VITALS: BP 144/78; PULSE 82
[2020-04-24 16:50] VITALS: TEMP 97.1
== END 2020-04-24 11:40 | disposition home or self-care (01) ==
LOC: JASU-ENDO 04:37
PROVIDERS: ATTEND Internal Medicine Gastroenterology
PROC: 0DB78ZX Excision of Stomach, Pylorus, Via Natural or Artificial Opening Endoscopic, Diagnostic (ICD-10-PCS; 2020-04-24)
PROC: 0DB18ZX Excision of Upper Esophagus, Via Natural or Artificial Opening Endoscopic, Diagnostic (ICD-10-PCS; 2020-04-24)
PROC: 0DB28ZX Excision of Middle Esophagus, Via Natural or Artificial Opening Endoscopic, Diagnostic (ICD-10-PCS; 2020-04-24)
PROC: 0DB38ZX Excision of Lower Esophagus, Via Natural or Artificial Opening Endoscopic, Diagnostic (ICD-10-PCS; principal; 2020-04-24 09:00)
DX: K20.0 Eosinophilic esophagitis (principal); K29.50 Unspecified chronic gastritis without bleeding
CPT/HCPCS: 88305-TC; 88342-TC

== ENCOUNTER 2021-08-13 17:03 | Emergency (ER) | payer OTHER ==
[2021-08-13 17:18] VITALS: BP 139/92; PULSE 78; TEMP 98; BMI 36.5
[2021-08-13] MEDS ORDERED: KETOROLAC TROMETHAMINE 30 MG/1 ML VIAL IM ONE (18:15)
[2021-08-13] MEDS ORDERED: KETOROLAC TROMETHAMINE 30 MG/1 ML VIAL ONE (18:35)
== END 2021-08-13 18:53 | disposition home or self-care (01) ==
LOC: JERFT 17:03
PROC: 3E023GC Introduction of Other Therapeutic Substance into Muscle, Percutaneous Approach (ICD-10-PCS; principal; 2021-08-13)
DX: M54.50 Low back pain, unspecified (principal)
CPT/HCPCS: 99284-25